=== PATIENT | female | born 1990 | race Caucasian/White ===

== ENCOUNTER 2017-03-08 00:27 | Emergency (ER) | payer OTHER ==
[~2017-03-08] VITALS: Ht 167.6 cm; Wt 84.6 kg
[~2017-03-08 00:27] MED LIST: ALBUAER2 INH; ANT25 PO; EPIN1INJ37 IM; FERR1TAB23 PO; PREN1TAB26 PO
[2017-03-08 00:32] VITALS: TEMP 36.5; Ht 167.6 cm; Wt 84.6 kg
[2017-03-08] MEDS ORDERED: DiphenhydrAMINE HCL 50 MG/ML VIAL IV STA (00:42)
[2017-03-08] MEDS ORDERED: KETOROLAC TROMETHAMINE 30 MG/ML VIAL IV STA (00:42)
[2017-03-08] MEDS ORDERED: METOCLOPRAMIDE HCL INJ 5 MG/ML 2 ML VIAL IV STA (00:42)
--- NOTE | 2017-03-08 00:43 | EMERGENCY ROOM VISIT NOTE ---
History Report prepared by Scribe: Chris Barreto Under the Supervision of: Dr. Soto Graf D.O. First contact with patient: 00:37 Chief Complaint: HEADACHE Stated Complaint: HEADACHE History of Present Illness The patient is a 26 year old female who presents to the Emergency Room with complaints of a persistent migraine headache for the past two weeks. The headache improves temporarily after sleeping but always returns to the same intensity afterwards. The patient has also experienced nausea and vomiting. The patient became lightheaded tonight and was dry heaving. The headache is rated 9/ 10 in severity. She denies any recent head trauma. She denies fevers. The patient has had Tylenol, Ibuprofen, and Excedrin without relief. She was given 6 mg Morphine and 1 L NSS en route to the ED in the ambulance. She does have a history of migraines. She states that she wants to speak with her PCP about being referred to a Neurologist. Source of History: patient Onset: two weeks ago Position: head Quality: other (migraine) Timing: other (persistent) Modifying Factors (Relieving): other (sleep) Associated Symptoms: + nausea, + vomiting, No fevers Review of Systems See HPI for pertinent positives and negatives. A total of ten systems were reviewed and were otherwise negative. Past Medical & Surgical Medical Problems: (1) Anxiety (2) Asthma (3) Bipolar Disorder, Unspecified (4) Depression (5) Glaucoma (6) PTSD (post-traumatic stress disorder) Surgical Problems: (1) History of artificial eye lens Family History Patient reports no known family medical history. Social History Smoking Status: Current Every Day Smoker Alcohol Use: none Marital Status: Housing Status: lives with family Occupation Status: unemployed Current/Historical Medications Scheduled Biotin (Biotin), 1 CAP PO DAILY Allergies Coded Allergies: BEE STING (Verified Allergy, Intermediate, hives, 03/08/17) Cephalexin (Verified Allergy, Intermediate, hives, 03/08/17) Mushroom (Verified Allergy, Intermediate, hives, 03/08/17) Penicillins (Verified Allergy, Intermediate, hives, 03/08/17) Wasp (Unverified Allergy, Unknown, hives tounge swelled , 03/08/17) Uncoded Allergies: SEAFOOD (Allergy, Intermediate, hives, 07/22/14) Physical Exam Vital Signs Date Time Temp Pulse Resp B/P Pulse Ox O2 Delivery O2 Flow Rate FiO2 03/08/17 01:05 64 18 132/74 66 120/80 85 132/78 03/08/17 00:53 96 Room Air 03/08/17 00:53 96 Room Air 03/08/17 00:32 36.5 81 18 124/89 97 Room Air Physical Exam GENERAL: Awake, alert, well-appearing, in no distress HENT: Normocephalic, atraumatic. Oropharynx unremarkable. EYES: Normal conjunctiva. Sclera non-icteric. No meningismus. NECK: Supple. No nuchal rigidity. FROM. No JVD. RESPIRATORY: Clear to auscultation. CARDIAC: Regular rate, normal rhythm. Extremities warm and well perfused. Pulses equal. ABDOMEN: Soft, non-distended. No tenderness to palpation. No rebound or guarding. No masses. RECTAL: Deferred. MUSCULOSKELETAL: Chest examination reveals no tenderness. The back is symmetrical on inspection without obvious abnormality. There is no CVA tenderness to palpation. No joint edema. LOWER EXTREMITIES: Calves are equal size bilaterally and non-tender. No edema. No discoloration. NEURO: Normal sensorium. No sensory or motor deficits noted. Nonfocal. SKIN: No rash or jaundice noted. Medical Decision & Procedures ER Provider Diagnostic Interpretation: CT: Radiology results as stated below per my review and radiologist interpretation CT HEAD: Comparison is made to CT Head dated 06/09/16. No ICH mass effect or edema. Preserved stallings white matter differentiation. No skull fracture. Clear paranasal sinuses and mastoid air cells. Radiologist: Cely Rodriguez MD. Laboratory Results 03/08/17 00:50 Red Blood Count 4.31, Mean Corpuscular Volume 88.6, Mean Corpuscular Hemoglobin 31.1, Mean Corpuscular Hemoglobin Concent 35.1, Mean Platelet Volume 9.7, Neutrophils (%) (Auto) 78.1, Lymphocytes (%) (Auto) 16.9, Monocytes (%) (Auto) 4.2, Eosinophils (%) (Auto) 0.4, Basophils (%) (Auto) 0.2, Neutrophils # (Auto) 6.32, Lymphocytes # (Auto) 1.37, Monocytes # (Auto) 0.34, Eosinophils # (Auto) 0.03, Basophils # (Auto) 0.02 03/08/17 00:50 Test 03/08/17 00:50 White Blood Count 8.10 K/uL (4.8-10.8) Red Blood Count 4.31 M/uL (4.2-5.4) Hemoglobin 13.4 g/dL (12.0-16.0) Hematocrit 38.2 % (37-47) Mean Corpuscular Volume 88.6 fL (80-100) Mean Corpuscular Hemoglobin 31.1 pg (25-34) Mean Corpuscular Hemoglobin Concent 35.1 g/dl (32-36) Platelet Count 201 K/uL (130-400) Mean Platelet Volume 9.7 fL (7.4-10.4) Neutrophils (%) (Auto) 78.1 % Lymphocytes (%) (Auto) 16.9 % Monocytes (%) (Auto) 4.2 % Eosinophils (%) (Auto) 0.4 % Basophils (%) (Auto) 0.2 % Neutrophils # (Auto) 6.32 K/uL (1.4-6.5) Lymphocytes # (Auto) 1.37 K/uL (1.2-3.4) Monocytes # (Auto) 0.34 K/uL (0.11-0.59) Eosinophils # (Auto) 0.03 K/uL (0-0.5) Basophils # (Auto) 0.02 K/uL (0-0.2) RDW Standard Deviation 38.8 fL (36.4-46.3) RDW Coefficient of Variation 12.0 % (11.5-14.5) Immature Granulocyte % (Auto) 0.2 % Immature Granulocyte # (Auto) 0.02 K/uL (0.00-0.02) Anion Gap 6.0 mmol/L (3-11) Est Creatinine Clear Calc Drug Dose 100.4 ml/min Estimated GFR () 98.3 Estimated GFR (Non- 84.8 BUN/Creatinine Ratio 16.3 (10-20) Calcium Level 8.6 mg/dl (8.5-10.1) Total Bilirubin 0.9 mg/dl (0.2-1) Direct Bilirubin 0.2 mg/dl (0-0.2) Aspartate Amino Transf (AST/SGOT) 22 U/L (15-37) Alanine Aminotransferase (ALT/SGPT) 36 U/L (12-78) Alkaline Phosphatase 54 U/L (45-117) Total Protein 6.7 gm/dl (6.4-8.2) Albumin 3.7 gm/dl (3.4-5.0) Laboratory results reviewed by me Medications Administered Medications (Trade) Dose Ordered Sig/Isabel Route Start Time Stop Time Status Last Admin Dose Admin Diphenhydramine HCl (Benadryl Inj) 50 mg NOW STAT IV 03/08/17 00:42 03/08/17 00:44 DC 03/08/17 00:51 50 MG Metoclopramide HCl (Reglan Inj) 10 mg NOW STAT IV 03/08/17 00:42 03/08/17 00:44 DC 03/08/17 00:51 10 MG Ketorolac Tromethamine (Toradol Inj) 30 mg NOW STAT IV 03/08/17 00:42 03/08/17 00:44 DC 03/08/17 00:52 30 MG ED Course 0038: The patient was evaluated in room B12b. A complete history and physical exam was performed. 0042: Toradol 30 mg IV, Reglan 10 mg IV, Benadryl 50 mg IV. 0132: The patient is doing well. Medical Decision Differential diagnosis includes migraine, tension headache, dehydration, brain tumor. Doubt meningitis, doubt subarachnoid hemorrhage. Repeat examination at 1:35 AM the patient is nonfocal neurologically and has greatly improved as far as her headache. I do not suspect subarachnoid or meningitis at this time. I have discussed evaluation with the patient patient' s significant other who is at bedside. Patient is to follow-up with her primary care physician this week and reportedly get an outpatient MRI as well. Impression Primary Impression: Headache Scribe Attestation The scribe's documentation has been prepared under my direction and personally reviewed by me in its entirety. I confirm that the note above accurately reflects all work, treatment, procedures, and medical decision making performed by me. Departure Information Dispostion Home / Self-Care Referrals Baljeet Diego D.O. (PCP) Forms HOME CARE DOCUMENTATION FORM, IMPORTANT VISIT INFORMATION Patient Instructions ED Headache Migraine, [facility] Problem Qualifiers Primary Impression: Headache Headache type: unspecified Headache chronicity pattern: acute headache Intractability: not intractable Qualified Codes: R51 - Headache
[2017-03-08 00:53] VITALS: O2SAT 96
[2017-03-08 01:03] LABS: BASO % 0.2 %; BASO ABS # 0.02 K/uL (0-0.2); COMPLETE YES; EOS % 0.4 %; HEMATOCRIT 38.2 % (37-47); IG% 0.2 %; LYMPH % 16.9 %; LYMPH ABS # 1.37 K/uL (1.2-3.4); MEAN CELL VOLUME 88.6 fL (80-100); MEAN CORPUSCULAR HEMOGLOBIN 31.1 pg (25-34); MEAN CORPUSCULAR HGB CONC 35.1 g/dl (32-36); MEAN PLATELET VOLUME 9.7 fL (7.4-10.4); MONO % 4.2 %; NEUT % 78.1 %; PLATELET COUNT 201 K/uL (130-400); RED BLOOD COUNT 4.31 M/uL (4.2-5.4)
[2017-03-08 01:21] LABS: BUN/CREATININE RATIO 16.3 (10-20); CALCIUM 8.6 mg/dl (8.5-10.1); CREATININE 0.93 mg/dl (0.60-1.20); POTASSIUM 3.7 mmol/L (3.5-5.1)
[2017-03-08] MEDS ORDERED: BIOT1CAP8 PO (01:24)
[2017-03-08 01:47] VITALS: BP 126/70; PULSE 74; O2SAT 98
--- NOTE | 2017-03-08 06:50 | DIAGNOSTIC IMAGING REPORT ---
HEAD CT NONCONTRAST CT DOSE: 537.48 mGy.cm HISTORY: Pain. Mental status change. headache TECHNIQUE: Multiaxial CT images of the head were performed without the use of intravenous contrast. Comparison: 06/09/2016 Findings: The paranasal sinuses and mastoid air cells are clear. The calvarium and skull base are intact. The ventricles and sulci are within normal limits. There is no mass, hematoma, midline shift, or acute infarct. Impression: No acute intracranial abnormality. Electronically signed by: Clem Grimaldo M.D. 03/08/2017 6:48 AM Dictated Date/Time: 03/08/2017 6:47 AM
== END 2017-03-08 01:50 | disposition home or self-care (01) ==
LOC: EDBD 00:27 → C.EDB 00:28
DX: R51 Headache (principal); J45.909 Unspecified asthma, uncomplicated; F41.9 Anxiety disorder, unspecified; F31.9 Bipolar disorder, unspecified; F17.200 Nicotine dependence, unspecified, uncomplicated; Z79.899 Other long term (current) drug therapy; Z88.0 Allergy status to penicillin; Z88.8 Allergy status to other drugs, medicaments and biological substances; Z91.030 Bee allergy status

== ENCOUNTER 2018-12-12 20:02 | Observation (INO) ==
[2018-12-12 21:48] LABS: Basophils # (auto) 0.02 K/uL (0-0.2); Basophils % (auto) 0.3 %; Eosinophils # (auto) 0.05 K/uL (0-0.5); Eosinophils % (auto) 0.6 %; Hematocrit (blood only) 35.1 % (37-47); Hemoglobin 12.3 g/dL (12.0-16.0); Immature Granulocytes # (auto) 0.04 K/uL (0.00-0.02); Immature Granulocytes % (auto) 0.5 %; Lymphocytes # (auto) 1.74 K/uL (1.2-3.4); Lymphocytes % (auto) 22.1 %; Mean Corpuscular Volume 90.7 fL (80-100); Mean Platelet Volume 10.4 fL (7.4-10.4); Monocytes # (auto) 0.82 K/uL (0.11-0.59); Monocytes % (auto) 10.4 %; Neutrophils # (auto) 5.21 K/uL (1.4-6.5); Neutrophils % (auto) 66.1 %; Platelet Count 174 K/uL (130-400); RDW Coefficient of Variation 13.6 % (11.5-14.5); RDW Standard Deviation 44.8 fL (36.4-46.3); Red Blood Count 3.87 M/uL (4.2-5.4); White Blood Count 7.88 K/uL (4.8-10.8)
[2018-12-12 23:37] LABS: Albumin Level 2.5 gm/dl (3.4-5.0); BUN Creatinine Ratio 9.1 (10-20); Calcium 8.5 mg/dl (8.5-10.1); Creatinine Clr Calc Pharmacy 148.9 ml/min; Est GFR (African American) 143.2; Est GFR (Non-African American) 123.6; Potassium 3.5 mmol/L (3.5-5.1)
[2018-12-12 23:39] LABS: Albumin Globulin Ratio 0.7 (0.9-2); Bilirubin,Total 0.7 mg/dl (0.2-1); Globulin 3.8 gm/dl (2.5-4.0); Total Protein 6.3 gm/dl (6.4-8.2)
[2018-12-13] MEDS ORDERED: HYDROmorphone INJ 2 MG/ML SYR/VIAL IM STA (01:39)
--- NOTE | 2018-12-13 01:43 | Labor Progress Brief Note ---
Date of Service December 13, 2018 27yo at 36+ weeks Here for ctx No cervical change after 3 hrs eval A/P Latent phase labor Dilaudid Physical Exam 2 Vital Signs (Past 24 Hours): Last Vital Signs Temp 36.6 C 12/12/18 23:25 Pulse 89 12/12/18 23:25 Resp 18 12/12/18 20:24 BP 120/73 12/12/18 23:25
[2018-12-13] MEDS ORDERED: HYDROmorphone INJ 1 MG/ML SYRINGE IM STA (01:47)
--- NOTE | 2018-12-13 07:25 | Obstetrical Progress Note ---
Date of Service December 13, 2018 Subjective contractions spaced out with Dilaudid and Benadryl FHT Cat 1 cervix 2/50/-3/vertex/closed/intact Not actively in labor will d/c home Physical Exam 2 Vital Signs (Past 24 Hours): Last Vital Signs Temp 36.6 C 12/12/18 23:25 Pulse 72 12/13/18 07:12 Resp 18 12/12/18 20:24 BP 124/73 12/13/18 02:38 Pulse Ox 98 12/13/18 07:12
== END 2018-12-13 08:40 | disposition home or self-care (01) ==
LOC: 4S1 20:02 → OPB 20:02 → 4S1 20:03

== ENCOUNTER 2019-10-11 11:42 | Inpatient (IN) ==
[2019-10-11] MEDS ORDERED: ONDANSETRON INJ 2 MG/ML 2 ML VIAL IV STA (11:56)
[2019-10-11] MEDS ORDERED: KETOROLAC TROMETHAMINE 15 MG/ML VIAL IV STA (11:56)
[2019-10-11] MEDS ORDERED: SODIUM CHLORIDE 0.9% 1000ML 1,000 ML IV ONE ×2 (11:56→13:06)
[2019-10-11] MEDS: HYDROmorphone INJ 0.5 MG/0.5 ML SYR IV PRN ×3 (12:17→16:15)
[2019-10-11 12:33] LABS: Basophils # (auto) 0.01 K/uL (0-0.2); Basophils % (auto) 0.1 %; Hematocrit (blood only) 37.9 % (37-47); Hemoglobin 13.8 g/dL (12.0-16.0); Immature Granulocytes # (auto) 0.03 K/uL (0.00-0.02); Immature Granulocytes % (auto) 0.3 %; Lymphocytes # (auto) 1.05 K/uL (1.2-3.4); Mean Corpuscular Hemoglobin 32.3 pg (25-34); Mean Corpuscular Hgb Conc 36.4 g/dL (32-36); Mean Corpuscular Volume 88.8 fL (80-100); Mean Platelet Volume 10.3 fL (7.4-10.4); Monocytes # (auto) 1.45 K/uL (0.11-0.59); Monocytes % (auto) 12.4 %; Neutrophils # (auto) 9.17 K/uL (1.4-6.5); Neutrophils % (auto) 78.2 %; Platelet Count 178 K/uL (130-400); RDW Coefficient of Variation 12.2 % (11.5-14.5); RDW Standard Deviation 39.1 fL (36.4-46.3); Red Blood Count 4.27 M/uL (4.2-5.4); White Blood Count 11.71 K/uL (4.8-10.8)
[2019-10-11 12:51] LABS: Albumin Level 3.3 gm/dl (3.4-5.0); BUN Creatinine Ratio 6.3 (10-20); Calcium 9.6 mg/dl (8.5-10.1); Creatinine Clr Calc Pharmacy 74.9 ml/min; Est GFR (African American) 89.9; Est GFR (Non-African American) 77.6; Potassium 3.1 mmol/L (3.5-5.1)
[2019-10-11 12:54] LABS: Albumin Globulin Ratio 0.7 (0.9-2); Bilirubin,Total 1.3 mg/dl (0.2-1); Globulin 4.5 gm/dl (2.5-4.0); Total Protein 7.8 gm/dl (6.4-8.2)
[2019-10-11 13:11] LABS: Pregnancy Test, Serum Negative (Negative)
--- NOTE | 2019-10-11 13:23 | Ultrasound Report ---
ABDOMINAL ULTRASOUND, RIGHT UPPER QUADRANT HISTORY: Right upper quadrant pain. Fever.. COMPARISON: Abdomen and pelvis CT 02/01/2015. FINDINGS: Pancreas: The pancreatic head and tail are obscured by overlying bowel gas. The remaining portions of the pancreas are within normal limits. Liver: Unremarkable. Gallbladder: Gallbladder fundus is partially obscured by overlying bowel gas. The remaining portions of the gallbladder are within normal limits. No gallbladder wall thickening. No gallstones. CBD: 4 mm. Right kidney: No hydronephrosis. IMPRESSION: No significant abnormality identified within the right upper quadrant. Electronically signed by: Duane Marcus M.D. 10/11/2019 1:22 PM
[2019-10-11] MEDS ORDERED: IOVERSOL 100ml IV PRN (14:11)
--- NOTE | 2019-10-11 14:30 | CT Scan Report ---
CT abd pelvis IV con only CT DOSE: 400.07 mGy.cm HISTORY: Nausea. Vomiting. Fever. vomiting, RUQ abd pain, fever TECHNIQUE: Multiaxial CT images of the abdomen and pelvis were performed following the use of intrave nous contrast. A dose lowering technique was utilized adhering to the principles of ALARA. COMPARISON STUDY: 02/01/2015 FINDINGS: The liver spleen pancreas are unremarkable. Lung bases are considered clear. Right kidney shows heterogeneous enhancement primarily at the lower and mid pole region. This is asso ciated with mild perinephric infiltrative change. There is a small low-density focus mid left kidney unchanged from the prior exam. No evidence for hydronephrosis. Nonobstructive bowel pattern. Normal appendix. 2 cm left ovarian cyst. Moderate amount of free fluid within the pelvic cul-de-sac most likely physio logic. Mild bladder wall thickening. Possibility of cystitis is considered. IMPRESSION: 1. Findings consistent with right renal pyelonephritis. 2. Mild right perinephric fat infiltrative change. 3. Mild bladder wall thickening which may indicate a component of cystitis. 4. Study is otherwise unremarkable. 5. note is made of a 2 cm left ovarian cyst with moderate amount of free fluid within the pelvic cul- de-sac. The above report was generated using voice recognition software. It may contain grammatical, syntax or spelling errors. Electronically signed by: Clem Grimaldo M.D. 10/11/2019 2:28 PM
[2019-10-11] MEDS ORDERED: CIPROFLOXACIN 400 MG/200 ML BAG IV STA (14:34)
[2019-10-11] MEDS ORDERED: POTASSIUM CHLORIDE / WTR 10 MEQ/100 ML PLCT IV ONE (14:51)
[2019-10-11 15:21] LABS: Appearance Urine Cloudy (Clear); Bacteria Urine Automated 4+ (Negative); Bilirubin Urine Negative (Negative); Blood Urine 2+ (Negative); Color Urine Dark Yellow; Glucose Urine UA Negative (Negative); Ketones Urine Trace (Negative); Leukocyte Esterase Urine 2+ (Negative); Nitrite Urine Positive (Negative); Protein Urine 2+ (Negative); Specific Gravity Urine > 1.045 (1.000-1.030); Urobilinogen Urine Negative (Negative); WBC Urine Automated >30 /hpf (0-5)
[2019-10-11] MEDS ORDERED: ACETAMINOPHEN 500 MG TAB PO PRN (15:30)
--- NOTE | 2019-10-11 15:40 | Emergency Department Note ---
Entered by Aristides Spivey acting as a scribe for ED Provider Note CHIEF COMPLAINT: Abdominal pain HISTORY OF PRESENT ILLNESS: The patient is a 28 year old female who presents to the Emergency Room with complaints of constant right upper quadrant abdominal pain that started 3 days ago. The patient rates the pain as an 8/10 and notes nothing makes it better. Following the abdominal pain the patient developed a fever and has been unable to keep any medications down due to nausea and vomiting. The patient also endorses some neck stiffness and headache that started after the abdominal pain as well. The patient mentioned that she had a 10 months ago. The patie nt does still have her gallbladder and has a family history of gallbladder disease. Pt denies LOC, chills, diaphoresis, visual changes, chest pain, breathing difficulties, back pain, melena, hematochezia, urinary symptoms, numbness, weakness, lymphadenopathy, rash, or other complaints. REVIEW OF SYSTEMS: See HPI for pertinent positives and negatives. A total of ten systems were reviewed and were otherwise negative. PMHx/PSHx: , CHI, Asthma, Glaucoma, PTSD, Depression, Anxiety, Vertigo SOCIAL HISTORY: Patient lives at home. PHYSICAL EXAM: GENERAL: Awake, alert, very uncomfortable-appearing, in moderate distress HENT: Normocephalic, atraumatic. Oropharynx unremarkable. EYES: Normal conjunctiva. Sclera non-icteric. NECK: Inspection normal. Non-tender. Supple. No nuchal rigidity. FROM. No masses. RESPIRATORY: Clear to auscultation. No wheezes. No rales. Normal respiratory effort. CARDIAC: Tachycardic rate. Normal rhythm. No murmurs. No rubs. Extremities warm and well perfused. Pulses equal. No JVD. GI: Soft, non-distended. Right upper quadrant tenderness to palpation with guarding. No guarding. No masses. RECTAL: Deferred. MUSCULOSKELETAL: Atraumatic. Chest examination reveals no tenderness. The back is symmetrical on inspection without obvious abnormality. There is no CVA tenderness to palpation. No joint edema. LOWER EXTREMITIES: Calves are equal size bilaterally and non-tender. No edema. No discoloration. NEURO: Normal sensorium. No sensory or motor deficits noted. SKIN: No rash or jaundice noted. EMERGENCY DEPARTMENT COURSE: 1151: Past medical records reviewed. The patient was evaluated in room A09B, and a complete history and physical examination were performed. 1233: I reassessed the patient and she is feeling a little better. She is about to go to ultrasound. 1436: I reevaluated the patient and she is feeling somewhat better but still in pain. We discussed the results as well as the treatment plan, which she was agreeable with. 1450: I discussed the patient's case with Vernell LEAHY who is working under Dr. Giuliano Cooney Hospitalist. They agreed to accept the patient for further evaluation. MEDICAL DECISION MAKING: A9 Triage Nursing notes reviewed and agree them. The patient's history was concerning for flank and abdominal pain. Differential diagnosis: Etiologies such as biliary pathology, UTI, renal colic, appendicitis, diverticulitis, mesenteric ischemia, aortic pathology, infections, inflammatory bowel disease, PUD, as well as others were entertained. Physical examination findings: As above. Significant right upper quadrant tenderness. ER treatment provided: Normal saline hydration 2 L bolus IV Zofran IV Toradol IV Dilaudid x2 On reassessment the patient felt somewhat better. IV Cipro Diagnostic interpretation by me: The labs revealed a leukocytosis on CBC. Chemistry panel revealed mild hypokalemia. Urinalysis revealed findings consistent with urinary tract infection. Culture pending. Imaging studies: Gallbladder ultrasound reveals no acute findings. CT imaging of the abdomen pelvis with IV contrast reveals significant pyelonephritis on the right side. No other acute pathology noted. The patient's blood pressure is marginal. She still has significant pain. She has some nausea. She needs IV antibiotics for the pyelonephritis. Consultation: A consultation was placed with the hospitalist. The case was discussed and diagnostics were reviewed. The patient was evaluated in the ER for further treatment. IMPRESSION: Pyelonephritis Right upper quadrant abdominal pain Fever Hypokalemia Dehydration PLAN: Being evaluated by hospitalist The scribe's documentation has been prepared under my direction and personally reviewed by me in its entirety. I confirm that the note above accurately reflects all work, treatment, procedures, and medical decision making performed by me. Impression & Plan Pyelonephritis, Right upper quadrant abdominal pain, Fever, Hypokalemia, Acute dehydration Past Med/Surg History Medical History History of seizures Patient has a history of petit mal seizures, follows Neuro in [place]. Currently on no medications. Per patient's significant other, patient's last seizure activity was in 2018. Severe pre-eclampsia affecting first 2008-Induced at 34 weeks with twin due to preeclampsia Twin 2008 Family History Grandmother (Maternal) Diabetes Cervical cancer Grandfather (Paternal) Stroke Mother Cancer Ovarian and breast cancer Aunt Uterine cancer Breast cancer Social History Preferred Language: Thai Communication Ability: Effective Beliefs That Will Affect Care: None marital status: Single Current Living Situation: Family Feels Safe at Home: Yes Smoking Status: Former smoker Second Hand Exposure: No ; Hx Alcohol Use: No Hx Substance Use: No Results & Data Vital Signs Vital Signs - 24 hr 10/11/19 11:45 10/11/19 12:19 10/11/19 12:20 Temperature 38.5 C H Temperature Source Oral Pulse Rate 117 H Pulse Rate [Apical] 108 H Pulse Rate from SpO2 Sensor Respiratory Rate 22 24 Blood Pressure 144/77 H Blood Pressure [Left Arm] 112/69 Blood Pressure Mean 99 Blood Pressure Mean [Left Arm] 83 Blood Pressure Position Sitting Pulse Oximetry 100 98 98 Oxygen Delivery Method Room Air Room Air Sepsis Recent Fever Within 48 Hours Yes Sepsis New/Unexplained Change in Mental Status No Sepsis Action Taken by Nursing No Action Required 10/11/19 12:30 10/11/19 13:55 10/11/19 14:00 Temperature Temperature Source Pulse Rate 106 H 99 H 96 H Pulse Rate [Apical] 98 H Pulse Rate from SpO2 Sensor 106 H 99 H 98 H Respiratory Rate 27 H 31 H 21 Blood Pressure 96/61 L 92/42 L 97/48 L Blood Pressure [Left Arm] 92/42 L Blood Pressure Mean 77 62 64 Blood Pressure Mean [Left Arm] 58 Blood Pressure Position Pulse Oximetry 96 98 96 Oxygen Delivery Method Room Air Room Air Sepsis Recent Fever Within 48 Hours Sepsis New/Unexplained Change in Mental Status Sepsis Action Taken by Nursing 10/11/19 15:09 Temperature Temperature Source Pulse Rate Pulse Rate [Apical] 105 H Pulse Rate from SpO2 Sensor Respiratory Rate 20 Blood Pressure Blood Pressure [Left Arm] 100/57 L Blood Pressure Mean Blood Pressure Mean [Left Arm] 71 Blood Pressure Position Pulse Oximetry 100 Oxygen Delivery Method Room Air Sepsis Recent Fever Within 48 Hours Sepsis New/Unexplained Change in Mental Status Sepsis Action Taken by [facility] Medications Current Medication List: was personally reviewed by me Laboratory Data Attestation: I reviewed the patient's lab results. Result diagrams: 10/11/19 12:17 10/11/19 12:17 Lab Results 10/11/19 10/11/19 10/11/19 Range/Units 12:17 12:17 12:17 WBC 11.71 H (4.8-10.8) K/uL RBC 4.27 (4.2-5.4) M/uL Hgb 13.8 (12.0-16.0) g/dL Hct 37.9 (37-47) % MCV 88.8 (80-100) fL MCH 32.3 (25-34) pg MCHC 36.4 H (32-36) g/dL RDW Std Deviation 39.1 (36.4-46.3) fL RDW Coeff of Jeremiah 12.2 (11.5-14.5) % Plt Count 178 (130-400) K/uL MPV 10.3 (7.4-10.4) fL Immature Gran % (Auto) 0.3 % Neut % (Auto) 78.2 % Lymph % (Auto) 9.0 % Cottle % (Auto) 12.4 % Eos % (Auto) 0.0 % Baso % (Auto) 0.1 % Immature Gran # (Auto) 0.03 H (0.00-0.02) K/uL Neut # (Auto) 9.17 H (1.4-6.5) K/uL Lymph # (Auto) 1.05 L (1.2-3.4) K/uL Cottle # (Auto) 1.45 H (0.11-0.59) K/uL Eos # (Auto) 0.00 (0-0.5) K/uL Baso # (Auto) 0.01 (0-0.2) K/uL Sodium 134 L (136-145) mmol/L Potassium 3.1 L (3.5-5.1) mmol/L Chloride 104 (98-107) mmol/L Carbon Dioxide 23 (21-32) mmol/L Anion Gap 8.0 (3-11) BUN 6 L (7-18) mg/dl Creatinine 0.99 (0.6-1.2) mg/dl Est Cr Clr Drug Dosing 74.9 ml/min Est GFR ( Amer) 89.9 Est GFR (Non-Af Amer) 77.6 BUN/Creatinine Ratio 6.3 L (10-20) Glucose 110 H (70-99) mg/dl Calcium 9.6 (8.5-10.1) mg/dl Total Bilirubin 1.3 H (0.2-1) mg/dl AST 23 (15-37) U/L ALT 45 (12-78) U/L Alkaline Phosphatase 104 (45-117) U/L Total Protein 7.8 (6.4-8.2) gm/dl Albumin 3.3 L (3.4-5.0) gm/dl Globulin 4.5 H (2.5-4.0) gm/dl Albumin/Globulin Ratio 0.7 L (0.9-2) Lipase 112 (73-393) U/L HCG, Qual Negative (Negative) Urine Color Urine Appearance (Clear) Urine pH (4.5-7.5) Ur Specific [place] (1.000-1.030) Urine Protein (Negative) Urine Glucose (UA) (Negative) Urine Ketones (Negative) Urine Blood (Negative) Urine Nitrite (Negative) Urine Bilirubin (Negative) Urine Urobilinogen (Negative) Ur Leukocyte Esterase (Negative) 10/11/19 Range/Units 15:04 WBC (4.8-10.8) K/uL RBC (4.2-5.4) M/uL Hgb (12.0-16.0) g/dL Hct (37-47) % MCV (80-100) fL MCH (25-34) pg MCHC (32-36) g/dL RDW Std Deviation (36.4-46.3) fL RDW Coeff of Jeremiah (11.5-14.5) % Plt Count (130-400) K/uL MPV (7.4-10.4) fL Immature Gran % (Auto) % Neut % (Auto) % Lymph % (Auto) % Cottle % (Auto) % Eos % (Auto) % Baso % (Auto) % Immature Gran # (Auto) (0.00-0.02) K/uL Neut # (Auto) (1.4-6.5) K/uL Lymph # (Auto) (1.2-3.4) K/uL Cottle # (Auto) (0.11-0.59) K/uL Eos # (Auto) (0-0.5) K/uL Baso # (Auto) (0-0.2) K/uL Sodium (136-145) mmol/L Potassium (3.5-5.1) mmol/L Chloride (98-107) mmol/L Carbon Dioxide (21-32) mmol/L Anion Gap (3-11) BUN (7-18) mg/dl Creatinine (0.6-1.2) mg/dl Est Cr Clr Drug Dosing ml/min Est GFR ( Amer) Est GFR (Non-Af Amer) BUN/Creatinine Ratio (10-20) Glucose (70-99) mg/dl Calcium (8.5-10.1) mg/dl Total Bilirubin (0.2-1) mg/dl AST (15-37) U/L ALT (12-78) U/L Alkaline Phosphatase (45-117) U/L Total Protein (6.4-8.2) gm/dl Albumin (3.4-5.0) gm/dl Globulin (2.5-4.0) gm/dl Albumin/Globulin Ratio (0.9-2) Lipase (73-393) U/L HCG, Qual (Negative) Urine Color Dark Yellow Urine Appearance Cloudy A (Clear) Urine pH 6.0 (4.5-7.5) Ur Specific [place] > 1.045 H (1.000-1.030) Urine Protein 2+ H (Negative) Urine Glucose (UA) Negative (Negative) Urine Ketones Trace H (Negative) Urine Blood 2+ H (Negative) Urine Nitrite Positive A (Negative) Urine Bilirubin Negative (Negative) Urine Urobilinogen Negative (Negative) Ur Leukocyte Esterase 2+ H (Negative) Administered Medications Hydromorphone HCl (Dilaudid) 0.5 mg IV Q15M PRN PRN Reason: Pain Stop: 10/25/19 11:55 Last Admin: 10/11/19 13:51 Dose: 0.5 mg Documented by: [id number] Admin: 10/11/19 12:17 Dose: 0.5 mg Documented by: [id number] Potassium Chloride (K Sandro / Wtr) 10 meq in 100 mls @ 100 mls/hr IV ONE ONE Stop: 10/11/19 15:50 Last Admin: 10/11/19 15:04 Dose: 100 mls/hr Documented by: [id number] Ioversol (Optiray 320 100ml) 94 ml IV ONCE PRN PRN Reason: Interaction Checking Stop: 10/15/19 14:10 Last Admin: 10/11/19 14:12 Dose: 94 ml Documented by: [id number] Discontinued Medications Sodium Chloride (Nss 1000ml) 1,000 mls @ 999 mls/hr IV .Q1H1M ONE Stop: 10/11/19 12:56 Last Infusion: 10/11/19 13:15 Dose: 0 mls/hr Documented by: [id number] Admin: 10/11/19 12:14 Dose: 999 mls/hr Documented by: [id number] Sodium Chloride (Nss 1000ml) 1,000 mls @ 999 mls/hr IV .Q1H1M ONE Stop: 10/11/19 14:06 Last Admin: 10/11/19 13:51 Dose: 999 mls/hr Documented by: [id number] Ciprofloxacin (Cipro) 400 mg in 200 mls @ 200 mls/hr IV NOW STA Stop: 10/11/19 15:33 Last Admin: 10/11/19 15:04 Dose: 200 mls/hr Documented by: [id number] Ketorolac Tromethamine (Toradol) 10 mg IV NOW STA Stop: 10/11/19 11:57 Last Admin: 10/11/19 12:15 Dose: 10 mg Documented by: [id number] Ondansetron HCl (Zofran) 4 mg IV NOW STA Stop: 10/11/19 11:57 Last Admin: 10/11/19 12:15 Dose: 4 mg Documented by: [id number] Imaging Data Radiologist's Impression: Radiology results as stated below per my review and the radiologist's interpretation: CT abd pelvis IV con only CT DOSE: 400.07 mGy.cm HISTORY: Nausea. Vomiting. Fever. vomiting, RUQ abd pain, fever TECHNIQUE: Multiaxial CT images of the abdomen and pelvis were performed following the use of intravenous contrast. A dose lowering technique was utilized adhering to the principles of ALARA. COMPARISON STUDY: 02/01/2015 FINDINGS: The liver spleen pancreas are unremarkable. Lung bases are considered clear. Right kidney shows heterogeneous enhancement primarily at the lower and mid pole region. This is associated with mild perinephric infiltrative change. There is a small low-density focus mid left kidney unchanged from the prior exam. No evidence for hydronephrosis. Nonobstructive bowel pattern. Normal appendix. 2 cm left ovarian cyst. Moderate amount of free fluid within the pelvic cul-de-sac most likely physiologic. Mild bladder wall thickening. Possibility of cystitis is considered. IMPRESSION: 1. Findings consistent with right renal pyelonephritis. 2. Mild right perinephric fat infiltrative change. 3. Mild bladder wall thickening which may indicate a component of cystitis. 4. Study is otherwise unremarkable. 5. note is made of a 2 cm left ovarian cyst with moderate amount of free fluid within the pelvic cul-de-sac. The above report was generated using voice recognition software. It may contain grammatical, syntax or spelling errors. Electronically signed by: Clem Grimaldo M.D. 10/11/2019 2:28 PM ABDOMINAL ULTRASOUND, RIGHT UPPER QUADRANT HISTORY: Right upper quadrant pain. Fever.. COMPARISON: Abdomen and pelvis CT 02/01/2015. FINDINGS: Pancreas: The pancreatic head and tail are obscured by overlying bowel gas. The remaining portions of the pancreas are within normal limits. Liver: Unremarkable. Gallbladder: Gallbladder fundus is partially obscured by overlying bowel gas. The remaining portions of the gallbladder are within normal limits. No gallbladder wall thickening. No gallstones. CBD: 4 mm. Right kidney: No hydronephrosis. IMPRESSION: No significant abnormality identified within the right upper quadrant. Electronically signed by: Duane Marcus M.D. 10/11/2019 1:22 PM Blood Pressure Blood Pressure Findings: Low blood pressure Blood Pressure Disposition: further management by hospitalist Discharge Plan Visit Data Chief Complaint: Abdominal Pain Stated Complaint: SEVERE RT UPPER QUAD PAIN WITH FEVER ED Provider: Codey Hammonds Discharge Problem: Pyelonephritis, Right upper quadrant abdominal pain, Fever, Hypokalemia, Acute dehydration Patient Disposition: Being Evaluated by Hospitalist Forms Stand Alone Forms: My [employer] Prescriptions Prescriptions: No Action dextroamphetamine-amphetamine 10 mg tablet 10 mg PO DAILY RF: 0 dextroamphetamine-amphetamine 20 mg capsule,extended release 24hr 40 mg PO DIRECTED RF: 0 lorazepam 1 mg tablet 1 mg PO TID PRN (Reason: Anxiety) RF: 0 duloxetine 30 mg capsule,delayed release(DR/EC) 30 mg PO DIRECTED RF: 0 Referrals Referrals: Concetta Pruett MD [Primary Care Provider] - Discharge Problem: Fever Qualifiers: Fever type: unspecified Qualified Code(s): R50.9 - Fever, unspecified The scribe's documentation has been prepared under my direction and personally r eviewed by me in its entirety. I confirm that the note above accurately reflects all work, treatment, procedures, and medical decision making performed by me.
--- NOTE | 2019-10-11 15:47 | History & Physical Report ---
Date of Service October 11, 2019 Assessment & Plan (1) Sepsis: (2) Pyelonephritis: This is a 28-year-old female with history of depression, anxiety, ADD, migraine headaches and history of petit mall seizures who presents with worsening right upper quadrant pain x3 days and was found to have sepsis 2/2 acute right pyelonephritis. -Febrile at 38.5, tachycardic at 110, leukocytosis of 11.7k. Meets sepsis criteria per CMS guidelines -UA grossly abnormal. CT abd/pelvis with findings consistent with right renal pyelonephritis -Considered gall bladder pathology in setting of RUQ pain but GB ultrasound without significant abnormality identified within the right upper quadrant -Received dose of IV Cipro in ED. Will broaden coverage to IV Ertapenem (endorsing allergic rxn- anaphylaxis with PCN and keflex) -Urine, blood cultures pending. Lactate pending -Continue IV fluids, pain control (3) Hypokalemia: K of 3.1 in setting of poor PO intake, GI losses -Given 10 mEq in ED. Ordered 2 additional 10 Janice K Riders, as well as 20 mEq in NSS -Repeat lab work in AM (4) History of petit-mal seizures: History of reported petit mal seizures but not recorderd on EEG -Has never been on seizure medications. In transitioning to [facility] neuro group (5) Depression: Continue Cymbalta (6) ADD (attention deficit disorder): Continue Adderall (7) Anxiety: Continue Ativan PRN DVT Ppx: Early ambulation, albertina hose Code status: FULL PCP: Rakesh Dispo: Observation med tele. Plan to return home once medically stable. Patient seen in collaboration with Dr. Nobles. Please see addendum. History of Present Illness Chief Complaint: Abdominal pain Primary Care Provider: Concetta Acuna MD This is a 28-year-old female with history of depression, anxiety, ADD, migraine headaches and history of petit mall seizures who presents with worsening right upper quadrant pain x3 days. Patient states that pain is sharp and constant with intermittent pain wrapping around to her right back. Associated with fever with a T-max of 102, chills, lightheadedness, nausea and decreased appetite. Also endorses 4 episodes of vomiting today after eating. Denies any dysuria, hematuria or pyuria. Normal urinary urgency and frequency. Denies visual changes, chest pain, palpitations, shortness of breath, hematemesis, diarrhea or constipation. Patient recently stopped smoking cigarettes but endorses smoking marijuana 4-5 times per week to help manage anxiety and migraines. Allergies Allergy/AdvReac Type Severity Reaction Status Date / Time bee venom protein (honey bee) Allergy Severe Anaphylaxis Verified 10/11/19 12:36 hornet venom Allergy Severe Anaphylaxis Verified 10/11/19 12:36 shellfish derived Allergy Severe Anaphylaxis Verified 10/11/19 12:36 cephalexin Allergy Intermediate hives Verified 10/11/19 12:36 mushroom Allergy Intermediate hives Verified 10/11/19 12:36 Penicillins Allergy Intermediate hives Verified 10/11/19 12:36 sumatriptan [From Imitrex] Allergy Intermediate Hives Verified 10/11/19 12:36 Home Medications Home Medications Medication Instructions Recorded Confirmed Type dextroamphetamine-amphetamine 10 mg PO DAILY@1230 10/11/19 10/11/19 History dextroamphetamine-amphetamine 40 mg PO DIRECTED 10/11/19 10/11/19 History duloxetine 30 mg PO HS 10/11/19 10/11/19 History duloxetine 60 mg PO DAILY 10/11/19 10/11/19 History lorazepam 1 mg PO TID 10/11/19 10/11/19 History Past Med/Surg History Medical History (Updated 10/11/19 @ 16:40 by Vernell Ramirez PA-C) ADD (attention deficit disorder) History of petit-mal seizures (Chronic) History of seizures Patient has a history of petit mal seizures, follows Neuro in [place]. Currently on no medications. Per patient's significant other, patient's last seizure activity was in 2018. 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 Physical Exam Physical Exam: General Appearance: WD/WN, vitals as above, NAD, lying in bed, conversing easily, appears acutely ill Head: normocephalic, atraumatic Eyes: normal inspection, PERRL, conjunctivae normal, anicteric sclerae ENT: external ear and nose normal, oropharynx normal Neck: trachea midline, no thyromegaly normal visual inspection Respiratory: normal respiratory effort, lungs clear to auscultation, no wheeze, rales, rhonchi. Normal insp/exp effort, no accessory muscle use Cardiovascular: tachycardic rate, rhythm, no murmur appreciated, normal peripheral pulses. Vessels: no JVD or carotid bruit Chest: normal inspection of chest Abdomen/GI: normal bowel sounds, soft, TTP of RUQ and RLQ, no guarding, no hepatosplenomegaly : + R CVA tenderness Extremities/Musculoskelatal: no cyanosis or clubbing, extremities motor strength 5/5 Neurologic: PERRL, EOMI, accommodation nl, no face palsy, no dysarthria CN's II-XI intact bilaterally and moves all extremities Psychiatric: A+Ox3, euthymic affect Skin: no rashes, normal color, warm/dry Results & Data Vital Signs (Past 12 Hours) Vital Signs Temp Pulse Pulse Resp BP BP Pulse Ox 10/11/19 15:09 105 H 20 100/57 L 100 10/11/19 14:00 96 H 21 97/48 L 96 10/11/19 13:55 99 H 98 H 31 H 92/42 L 92/42 L 98 10/11/19 12:30 106 H 27 H 96/61 L 96 10/11/19 12:20 108 H 24 112/69 98 10/11/19 12:19 98 10/11/19 11:45 38.5 C H 117 H 22 144/77 H 100 Laboratory Results Short CBC 10/11/19 Range/Units 12:17 WBC 11.71 H (4.8-10.8) K/uL Hgb 13.8 (12.0-16.0) g/dL Hct 37.9 (37-47) % Plt Count 178 (130-400) K/uL BMP 10/11/19 12:17 Sodium 134 L Potassium 3.1 L Chloride 104 Carbon Dioxide 23 BUN 6 L Creatinine 0.99 Glucose 110 H Calcium 9.6 Liver Function 10/11/19 Range/Units 12:17 Total Bilirubin 1.3 H (0.2-1) mg/dl AST 23 (15-37) U/L ALT 45 (12-78) U/L Alkaline Phosphatase 104 (45-117) U/L Albumin 3.3 L (3.4-5.0) gm/dl Urine 10/11/19 Range/Units 15:04 Urine Color Dark Yellow Urine Appearance Cloudy A (Clear) Urine pH 6.0 (4.5-7.5) Ur Specific [place] > 1.045 H (1.000-1.030) Urine Protein 2+ H (Negative) Urine Glucose (UA) Negative (Negative) Diagnostic Findings Gallbladder ultrasound: IMPRESSION: No significant abnormality identified within the right upper quadrant. CT abd/pelvis: IMPRESSION: 1. Findings consistent with right renal pyelonephritis. 2. Mild right perinephric fat infiltrative change. 3. Mild bladder wall thickening which may indicate a component of cystitis. 4. Study is otherwise unremarkable. 5. note is made of a 2 cm left ovarian cyst with moderate amount of free fluid within the pelvic cul-de-sac. Supervising Physician Co-Signing Physician Notes I have seen and examined the patient and have discussed the case with the provider above. I agree with the assessment and plan as stated with the following exceptions. 28 yo F with sepsis 2/2 acute pyelonephritis. She denies any UTI symptoms, and developed acute right flank pain with fever that worsened. she denies recurrent UTIs in the past, denies any recent instrumentation, denies thong underwear use. She has been sexually active recently. No other vaginal symptoms. She does report some URI symptoms in the past two weeks that are persistent. She also has a h/o migraines and tension headaches and report this with some subjective neck stiffness. She states this is a typical headache for her with her migraine cycle and her neck exam is very normal. She reports guarding with the pain all through the day and feels this has caused her neck and head pain. Although meningitis considered, do not suspect it based on these reasons. Ill-appearing and guarded on physical exam, normal heart and lungs, exquisitely zaki abdomen to palpation in RUQ and R CVA areas. Some pain radiating to her back with palpation of epigastric area. Skin warm and dry. Continue treatment with IVF, ertapenem and supportive care efforts including antiemetics and pain control as needed. K pad for neck discomfort. Blood and urine cultures pending. DO Giuliano
[2019-10-11] MEDS ORDERED: ERTAPENEM CONSULT ACTIVE PRN (17:33)
[2019-10-11] MEDS: POTASSIUM CHLORIDE / WTR 10 MEQ/100 ML PLCT IV SCH (17:50)
[2019-10-11] MEDS: ONDANSETRON INJ 2 MG/ML 2 ML VIAL IV PRN (17:56)
[2019-10-11] MEDS: KETOROLAC TROMETHAMINE 15 MG/ML VIAL IV PRN (17:56)
[2019-10-11] MEDS ORDERED: NSS + 20MEQ KCL 20 MEQ/1,000 ML BAG IV SCH (18:00)
[2019-10-11] MEDS: ERTAPENEM SODIUM 1,000 MG in SODIUM CHLORIDE 0.9% 50 ML IV SCH (18:08)
[2019-10-11] MEDS ORDERED: POTASSIUM CHLORIDE 20 MEQ TABCR PO ONE (19:45)
[2019-10-11] MEDS ORDERED: ACETAMINOPHEN 1,000 MG/100 ML VIAL IV PRN (20:09)
[2019-10-11] MEDS ORDERED: HYDROmorphone INJ 0.5 MG/0.5 ML SYR IV PRN (20:09)
[2019-10-11] MEDS: LORazepam 1 MG TAB PO SCH (22:56)
[2019-10-11] MEDS: DULOXETINE HCL 30 MG CAP PO SCH (22:56)
[2019-10-12] MEDS: ONDANSETRON INJ 2 MG/ML 2 ML VIAL IV PRN (00:09)
[2019-10-12] MEDS: KETOROLAC TROMETHAMINE 15 MG/ML VIAL IV PRN ×3 (00:09→15:24)
[2019-10-12] MEDS: SODIUM CHLORIDE 0.9% 1000ML 1,000 ML IV SCH ×2 (01:47→08:27)
[2019-10-12 07:03] LABS: Hematocrit (blood only) 33.9 % (37-47); Hemoglobin 11.7 g/dL (12.0-16.0); Mean Corpuscular Hemoglobin 31.8 pg (25-34); Mean Corpuscular Hgb Conc 34.5 g/dL (32-36); Mean Corpuscular Volume 92.1 fL (80-100); Platelet Count 136 K/uL (130-400); RDW Coefficient of Variation 12.5 % (11.5-14.5); RDW Standard Deviation 42.3 fL (36.4-46.3); Red Blood Count 3.68 M/uL (4.2-5.4); White Blood Count 9.54 K/uL (4.8-10.8)
[2019-10-12 07:45] LABS: BUN Creatinine Ratio 10.6 (10-20); Calcium 8.4 mg/dl (8.5-10.1); Creatinine Clr Calc Pharmacy 91.5 ml/min; Est GFR (African American) 112.9; Est GFR (Non-African American) 97.4; Magnesium 1.9 mg/dl (1.8-2.4); Potassium 4.1 mmol/L (3.5-5.1)
[2019-10-12] MEDS: LORazepam 1 MG TAB PO SCH ×3 (08:28→20:03)
[2019-10-12] MEDS: AMPHETAMINE ASP/SULF/DEXTRAMPH ER 20 MG CAP PO SCH (08:28)
[2019-10-12] MEDS: ENOXAPARIN INJ 40 MG/0.4 ML SYR SQ SCH (08:29)
[2019-10-12] MEDS: DULOXETINE HCL 60 MG CAP PO SCH (08:30)
--- NOTE | 2019-10-12 10:43 | Hospitalist Progress Note ---
Date of Service October 12, 2019 Assessment & Plan (1) Sepsis: (2) Pyelonephritis: per Dr. Alvarado notes: This is a 28-year-old female with history of depression, anxiety, ADD, migraine headaches and history of petit mall seizures who presents with worsening right upper quadrant pain x3 days and was found to have sepsis 2/2 acute right pyelonephritis. -Febrile at 38.5, tachycardic at 110, leukocytosis of 11.7k. Meets sepsis criteria per CMS guidelines -UA grossly abnormal. CT abd/pelvis with findings consistent with right renal pyelonephritis - Urine culture: E coli, gram negative bacilli Blood cultures: pending - fever and WBC improving continue Ertapenem ff up cultures hold off on IV fluids given wheezing (3) Asthma exacerbation: CXR:Cardiomediastinal and hilar silhouettes are within normal limits. No pneumothorax, pleural effusion, focal airspace consolidation or overt pulmonary edema. Bones of the chest appear grossly intact. ABG : pending -- started Nebs q4h, Advair, Solumedrol q8h -- reassessed at around 4pm, patient comfortable, breathing much better wheezing resolved on ausculatation (4) Hypokalemia: K of 3.1 in setting of poor PO intake, GI losses - resolved (5) History of petit-mal seizures: per admitting service notes: History of reported petit mal seizures but not recorderd on EEG -Has never been on seizure medications. In transitioning to [facility] (6) Depression: Continue Cymbalta (7) ADD (attention deficit disorder): Continue Adderall (8) Anxiety: Continue Ativan PRN DVT Ppx: Early ambulation, albertina hose , LOVENOX Code status: FULL PCP: Rakesh Dispo: Observation med tele. Plan to return home once medically stable. Subjective ff up for pyelonephritis seen resting in bed, comfortable CRISPIN Vasquez at bedside throughout whole encounter states she is feeling better today, less RUQ/flank pain no nausea/vomiting, no problems voiding no other symptoms in the afternoon, messaged by RN as patient was hypoxic evaluated patient at bedside, on 2 L NC, 98% o2 sats feels SOB, better with O2 supplement (+) mild accessory muscle use, mild diffuse wheezing ordered stat CXR, ABG stat Lasix, Nebs, Solumedrol patient clinically improved, no accessory muscle use after initial assessment will reassess again in 1-2 hours Review of Systems Review of Systems: All systems reviewed & are unremarkable except as noted in HPI & below Physical Exam Physical Exam: General- oriented x 3, not in distress, speaks in sentences with no effort or accessory muscle use Head- atraumatic Eyes- PERRL, EOMI, anicteric ENT- oropharynx clear Neck- supple, no JVD, no adenopathy, no thyromegaly; carotids +2/2, no bruits appreciated Lungs- clear to auscultation bilaterally, no rales/wheezes (in the afternoon, (+) scattered mild wheeze bilaterally) Heart- normal rate, regular rhythm; no murmur, no gallop, no rub appreciated Abdomen- normal bowel sounds, nondistended, soft,mild RUQ/right CVA tenderness, no masses or hepatosplenomegaly Extremities- no pretibial edema, no calf tenderness; peripheral pulses intact Neuro- alert, oriented x 3; CN 2-12 grossly intact; motor 5/5 bilaterally;sensation 100% on all extremities; no other gross focal neurologic deficits Skin- warm & dry Results & Data Vital Signs (Past 12 Hours) Vital Signs Temp Pulse Pulse Resp BP Pulse Ox 10/12/19 10:26 89 10/12/19 07:46 37.2 C 98 H 18 112/75 94 10/12/19 05:16 89 10/12/19 04:09 36.8 C 76 17 100/64 99
[2019-10-12] MEDS ORDERED: FUROSEMIDE 40 MG/4 ML VIAL IV ONE (14:06)
[2019-10-12] MEDS ORDERED: LEVALBUTEROL 1.25MG/0.5ML NEB NEB STA (14:09)
[2019-10-12] MEDS: AMPHETAMINE ASP/SULF/DEXTRAMPH 10 MG TAB PO SCH (14:18)
[2019-10-12 14:41] LABS: Base Excess ABG -1.1 mEq/L (-9-1.8); HCO3 ABG 21 mmol/L (19-24); Oxygen Saturation ABG 99.3 % (90-95); PCO2 ABG 29 mmHg (35-46); PO2 ABG 155 mm/Hg (80-95); pH ABG 7.49 (7.35-7.45)
--- NOTE | 2019-10-12 14:41 | XRay Report ---
XR chest 1V portable HISTORY: 28 years-old Female hypoxia acute hypoxia COMPARISON: Chest radiograph 06/09/2016 TECHNIQUE: Portable AP view of the chest FINDINGS: Cardiomediastinal and hilar silhouettes are within normal limits. No pneumothorax, pleural effusion, focal airspace consolidation or overt pulmonary edema. Bones of the chest appear grossly intact. IMPRESSION: No acute process. The above report was generated using voice recognition software. It may contain grammatical, syntax o r spelling errors. Electronically signed by: Johan Mackey M.D. 10/12/2019 2:40 PM
[2019-10-12] MEDS: LEVALBUTEROL 1.25MG/0.5ML NEB NEB SCH ×3 (14:43→23:45)
[2019-10-12] MEDS ORDERED: FUROSEMIDE 20 MG in SYRINGE 0 ML IV ONE (14:45)
[2019-10-12] MEDS ORDERED: methylPREDNISolone 60 MG in SYRINGE 0 ML IV ONE (14:45)
[2019-10-12 16:24] LABS: Allen Test POS (Pos)
[2019-10-12] MEDS: ERTAPENEM SODIUM 1,000 MG in SODIUM CHLORIDE 0.9% 50 ML IV SCH (18:09)
[2019-10-12] MEDS: methylPREDNISolone 40 MG in SYRINGE 0 ML IV SCH (20:03)
[2019-10-12] MEDS: DULOXETINE HCL 30 MG CAP PO SCH (20:03)
[2019-10-12] MEDS: FLUTICASONE/SALMETEROL 250/50 (ADVAIR) 14 PUFF/1 INHALER INH SCH (20:03)
[2019-10-13] MEDS: methylPREDNISolone 40 MG in SYRINGE 0 ML IV SCH (03:41)
[2019-10-13] MEDS: LEVALBUTEROL 1.25MG/0.5ML NEB NEB SCH ×2 (03:56→07:28)
--- NOTE | 2019-10-13 05:25 | Communication Note ---
Date of Service: October 13, 2019 Made aware by RN of gram-positive cocci in clusters 1 bottle of blood cultures. AP Gram-positive bacteremia Repeat blood cultures x2 IV Daptomycin for now Will relay to him provider.
[2019-10-13] MEDS ORDERED: CONSULT PHARMACY PRN (05:29)
[2019-10-13] MEDS ORDERED: DAPTOMYCIN CONSULT ACTIVE PRN (05:32)
[2019-10-13] MEDS: DAPTOmycin 450 MG in SYRINGE 0 ML IV SCH (05:58)
[2019-10-13 06:26] LABS: Creatinine Clr Calc Pharmacy 94.5 ml/min; Est GFR (African American) 118.1; Est GFR (Non-African American) 101.9
[2019-10-13] MEDS ORDERED: LEVALBUTEROL HCL 1.25 MG/3 ML NEB NEB SCH (07:45)
[2019-10-13] MEDS: FLUTICASONE/SALMETEROL 250/50 (ADVAIR) 14 PUFF/1 INHALER INH SCH ×2 (07:57→20:00)
[2019-10-13] MEDS: AMPHETAMINE ASP/SULF/DEXTRAMPH ER 20 MG CAP PO SCH (07:57)
[2019-10-13] MEDS: LORazepam 1 MG TAB PO SCH ×3 (07:57→19:59)
[2019-10-13] MEDS: DULOXETINE HCL 60 MG CAP PO SCH (07:58)
[2019-10-13] MEDS: ENOXAPARIN INJ 40 MG/0.4 ML SYR SQ SCH (07:58)
[2019-10-13] MEDS ORDERED: LEVALBUTEROL HCL 1.25 MG/3 ML NEB NEB PRN (11:28)
--- NOTE | 2019-10-13 11:29 | Hospitalist Progress Note ---
Date of Service October 13, 2019 Assessment & Plan (1) Sepsis: (2) Pyelonephritis: per Dr. Alvarado notes: This is a 28-year-old female with history of depression, anxiety, ADD, migraine headaches and history of petit mall seizures who presents with worsening right upper quadrant pain x3 days and was found to have sepsis 2/2 acute right pyelonephritis. -Febrile at 38.5, tachycardic at 110, leukocytosis of 11.7k. Meets sepsis criteria per CMS guidelines -UA grossly abnormal. CT abd/pelvis with findings consistent with right renal pyelonephritis - Urine culture: E coli Blood cultures: 1 bottle gram-positive cocci -Afebrile since yesterday and WBC improving continue Ertapenem, daptomycin ff up cultures -ID consulted hold off on IV fluids given wheezing yesterday (3) Asthma exacerbation: CXR:Cardiomediastinal and hilar silhouettes are within normal limits. No pneumothorax, pleural effusion, focal airspace consolidation or overt pulmonary edema. Bones of the chest appear grossly intact. ABG : pending -- started Nebs q4h, Advair, Solumedrol q8h --Resolved --Continue Advair, nebs as needed, DC Solu-Medrol and transition to prednisone 40 mg daily then taper x3 days (4) Hypokalemia: K of 3.1 in setting of poor PO intake, GI losses - resolved (5) History of petit-mal seizures: per admitting service notes: History of reported petit mal seizures but not recorderd on EEG -Has never been on seizure medications. In transitioning to [facility] neuro group (6) Depression: Continue Cymbalta (7) ADD (attention deficit disorder): Continue Adderall (8) Anxiety: Continue Ativan PRN DVT Ppx: Early ambulation, albertina hose , LOVENOX Code status: FULL PCP: Rakesh Dispo: Observation med tele. Plan to return home once medically stable. Subjective Follow-up for pyelonephritis Seen with SUSAN Lopez at the bedside throughout whole encounter Seen resting in bed, comfortable, not in distress States she feels improved compared to yesterday Right upper quadrant/flank pain almost resolved No problems with urination Breathing is fine, no coughing No other symptoms Review of Systems Review of Systems: All systems reviewed & are unremarkable except as noted in HPI & below Physical Exam Physical Exam: General- oriented x 3, not in distress, speaks in sentences with no effort or accessory muscle use Eyes- anicteric Neck- no JVD Lungs- clear breath sounds bilaterally, no rales/wheezes Heart- normal rate, regular rhythm; no murmurs Abdomen- normal bowel sounds, nondistended, soft, nontender No CVA tenderness Extremities- no pretibial edema, no calf tenderness Neuro- alert, oriented x 3; no gross focal neurologic deficits Skin- warm & dry Results & Data Vital Signs (Past 12 Hours) Vital Signs Temp Pulse Pulse Resp BP Pulse Ox 10/13/19 10:56 115 H 18 98 10/13/19 09:25 105 H 10/13/19 07:44 36.7 C 108 H 18 118/73 98 10/13/19 07:30 87 18 98 10/13/19 03:56 92 H 18 97 10/13/19 03:46 36.9 C 96 H 19 109/70 97 10/12/19 23:54 105 H 10/12/19 23:49 100 H 117/68 100 Laboratory Results Laboratory Results - last 24 hr 10/11/19 10/13/19 16:29 05:19 Creatinine 0.79 Est Cr Clr Drug Dosing 94.5 Est GFR ( Amer) 118.1 Est GFR (Non-Af Amer) 101.9 Bld Cult Staph aureus PCR Negative Blood Culture MRSA PCR Negative
[2019-10-13] MEDS: LEVALBUTEROL HCL 0.63 MG/3 ML NEB NEB SCH ×2 (11:54→15:10)
[2019-10-13] MEDS: AMPHETAMINE ASP/SULF/DEXTRAMPH 10 MG TAB PO SCH (12:03)
--- NOTE | 2019-10-13 14:26 | Infectious Disease Consult ---
Date of Consultation October 13, 2019 Assessment & Plan (1) Pyelonephritis: can continue current abx for now, suspect gpc is contaminant, will follow final. 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 History of Present Illness Attending Physician: Sánchez Marina MD pt admitted with ruq pain and fever 101+ x [address] abd/pelvis in ER revealed right pyelo. urine culture is growing E. coli x 2, 1 pansensitive, 1 resistant to bactrim only. Initially had fever, now resolved. still with some abd pain but feeling better. no n/v/d, but nausea overnight. no gu symptoms. UA >30 wbc +4 bacteria. blood cultures from ER 11/09 with gpc, repeat pending. On ertapenem and dapto, tolerating well. asking to go home tomorrow. wbc improved from 11 to 9 Allergies Allergy/AdvReac Type Severity Reaction Status Date / Time bee venom protein (honey bee) Allergy Severe Anaphylaxis Verified 10/11/19 12:36 hornet venom Allergy Severe Anaphylaxis Verified 10/11/19 12:36 shellfish derived Allergy Severe Anaphylaxis Verified 10/11/19 12:36 cephalexin Allergy Intermediate hives Verified 10/11/19 12:36 mushroom Allergy Intermediate hives Verified 10/11/19 12:36 Penicillins Allergy Intermediate hives Verified 10/11/19 12:36 sumatriptan [From Imitrex] Allergy Intermediate Hives Verified 10/11/19 12:36 Home Medications Home Medications Medication Instructions Recorded Confirmed Type dextroamphetamine-amphetamine 10 mg PO DAILY@1230 10/11/19 10/11/19 History dextroamphetamine-amphetamine 40 mg PO DIRECTED 10/11/19 10/11/19 History duloxetine 30 mg PO HS 10/11/19 10/11/19 History duloxetine 60 mg PO DAILY 10/11/19 10/11/19 History lorazepam 1 mg PO TID 10/11/19 10/11/19 History Patient History Medical History ADD (attention deficit disorder) History of petit-mal seizures (Chronic) History of seizures Patient has a history of petit mal seizures, follows Neuro in [place]. Currently on no medications. Per patient's significant other, patient's last seizure activity was in 2018. Severe pre-eclampsia affecting first 2008-Induced at 34 weeks with twin due to preeclampsia Twin 2008 Surgical History History of History of cataract surgery Family History Grandmother (Maternal) Diabetes Cervical cancer Grandfather (Paternal) Stroke Mother Cancer Ovarian and breast cancer Aunt Uterine cancer Breast cancer Social History Preferred Language: Danish Communication Ability: Effective Telephone Worker Required: No Beliefs That Will Affect Care: None marital status: Single Current Living Situation: Significant Other Other Information That Helps Us Care for You: No Feels Safe at Home: Yes Safety Concerns: Feels Safe At This Time Smoking Status: Former smoker Second Hand Exposure: No ; Hx Alcohol Use: No Hx Substance Use: Yes substance use type: marijuana Last Used Substance: Days (ago) Review of Systems Review of Systems: All systems reviewed & are unremarkable except as noted in HPI & below Physical Exam Constitutional: WD/WN, vitals as above Eyes: PERRL, conjunctivae normal, anicteric sclerae ENMT: external ear and nose normal, oropharynx normal Neck: normal visual inspection Respiratory: normal respiratory effort, lungs clear to auscultation Cardiovascular: RRR, no murmur, no edema Gastrointestinal (Abdomen): normal bowel sounds, soft, nontender, no hepatosplenomegaly Musculoskeletal: no cyanosis or clubbing, extremities motor strength 5/5 Skin: no rashes, warm and dry Psychiatric: A+Ox3, euthymic affect Results & Data Vital Signs (Past 12 Hours) Vital Signs Temp Pulse Pulse Resp BP Pulse Ox 10/13/19 11:34 36.7 C 128 H 18 117/57 L 97 10/13/19 10:56 115 H 18 98 10/13/19 09:25 105 H 10/13/19 07:44 36.7 C 108 H 18 118/73 98 10/13/19 07:30 87 18 98 10/13/19 03:56 92 H 18 97 10/13/19 03:46 36.9 C 96 H 19 109/70 97 Laboratory Results Microbiology 10/11/19 15:04 Urine,Clean Catch Urine Culture - Final Escherichia coli Escherichia coli#2 10/11/19 16:29 Blood Aerobic Blood Culture - Preliminary Gram positive cocci clusters 10/11/19 16:29 Blood Anaerobic Blood Culture - Preliminary No growth in Anaerobic bottle after 24 hours. 10/11/19 16:39 Blood Aerobic Blood Culture - Preliminary No growth in Aerobic bottle after 24 hours. 10/11/19 16:39 Blood Anaerobic Blood Culture - Preliminary No growth in Anaerobic bottle after 24 hours. PG Care Time/CCT Total # of Minutes Spent Total Time Spent with Patient: Total time spent is greater than 50% in coordination of care (as documented) at patient's floor/unit and/or counseling patient:
[2019-10-13] MEDS: ERTAPENEM SODIUM 1,000 MG in SODIUM CHLORIDE 0.9% 50 ML IV SCH (17:16)
[2019-10-13] MEDS ORDERED: LEVALBUTEROL HCL 0.63 MG/3 ML NEB NEB PRN (17:43)
[2019-10-13] MEDS: OXYCODONE HCL IR 5 MG TAB (IMMEDIATE RELEASE) PO PRN (18:14)
[2019-10-13] MEDS: DULOXETINE HCL 30 MG CAP PO SCH (20:00)
[2019-10-14] MEDS: OXYCODONE HCL IR 5 MG TAB (IMMEDIATE RELEASE) PO PRN ×2 (03:41→14:08)
[2019-10-14] MEDS: DAPTOmycin 450 MG in SYRINGE 0 ML IV SCH (05:47)
[2019-10-14 06:54] LABS: Est GFR (African American) 142.2; Est GFR (Non-African American) 122.7
[2019-10-14] MEDS: LORazepam 1 MG TAB PO SCH ×2 (08:35→14:08)
[2019-10-14] MEDS: AMPHETAMINE ASP/SULF/DEXTRAMPH ER 20 MG CAP PO SCH (08:35)
[2019-10-14] MEDS: DULOXETINE HCL 60 MG CAP PO SCH (08:36)
[2019-10-14] MEDS: ENOXAPARIN INJ 40 MG/0.4 ML SYR SQ SCH (08:36)
[2019-10-14] MEDS: FLUTICASONE/SALMETEROL 250/50 (ADVAIR) 14 PUFF/1 INHALER INH SCH (08:36)
[2019-10-14] MEDS: AMPHETAMINE ASP/SULF/DEXTRAMPH 10 MG TAB PO SCH (12:50)
--- NOTE | 2019-10-14 13:23 | Hospitalist Progress Note ---
Date of Service October 14, 2019 Assessment & Plan (1) Pyelonephritis: (1) Sepsis: (2) Pyelonephritis: per Dr. Alvarado notes: This is a 28-year-old female with history of depression, anxiety, ADD, migraine headaches and history of petit mall seizures who presents with worsening right upper quadrant pain x3 days and was found to have sepsis 2/2 acute right pyelonephritis. -Febrile at 38.5, tachycardic at 110, leukocytosis of 11.7k. Meets sepsis criteria per CMS guidelines -UA grossly abnormal. CT abd/pelvis with findings consistent with right renal pyelonephritis - Urine culture: E coli (pansensitive, except bactrim) Blood cultures: 1 bottle Micrococcus species, likely contaminant - given Ertapenem, daptomycin in light of penicillin, cephalosporin allergies ID consulted - fever resolved leukocytosis improved - clinically improved as well - discharge plan: Levaquin 500mg po daily x 14 days advised to take probiotics, yogurt daily x 3 weeks at least (3) Asthma exacerbation: developed mild wheezing and dyspnea while admitted CXR:Cardiomediastinal and hilar silhouettes are within normal limits. No pneumothorax, pleural effusion, focal airspace consolidation or overt pulmonary edema. Bones of the chest appear grossly intact. -- given Nebs q4h, Advair, Solumedrol q8h -- Resolved -- Continue Advair, and PRN Ventolin ff up with PCP this week (4) Hypokalemia: K of 3.1 in setting of poor PO intake, GI losses - resolved (5) History of petit-mal seizures: per admitting service notes: History of reported petit mal seizures but not recorderd on EEG -Has never been on seizure medications (6) Depression: Continue Cymbalta (7) ADD (attention deficit disorder): Continue Adderall (8) Anxiety: Continue Ativan PRN plan of care discussed with patient in detail and at length all questions answered she is understanding, comfortable, agreeable with plan of care Subjective ff up for pyelonephritis seen resting in chair, comfortable, in good spirits CRISPIN Vasquez present through whole encounter states she feels much better RUQ/Flank pain resolved, no problems with urination no feve/chills breathing back to baseline, no dyspnea/cough no other symptoms states she is ready and would like to be discharged today Review of Systems Review of Systems: All systems reviewed & are unremarkable except as noted in HPI & below Physical Exam Physical Exam: General- oriented x 3, not in distress, speaks in sentences with no effort or accessory muscle use Eyes- anicteric Neck- no JVD Lungs- clear breath sounds , no wheezing, no crackles bilaterally Heart- normal rate, regular rhythm; no murmurs Abdomen- normal bowel sounds, nondistended, soft, nontender no CVA tenderness Extremities- no pretibial edema, no calf tenderness Neuro- alert, oriented x 3; no gross focal neurologic deficits Skin- warm & dry Results & Data Vital Signs (Past 12 Hours) Vital Signs Temp Pulse Pulse Resp BP BP Pulse Ox 10/14/19 11:12 70 10/14/19 11:00 36.6 C 102 H 18 133/76 98 10/14/19 07:24 36.5 C 79 18 120/72 97 10/14/19 03:25 36.6 C 84 16 107/68 98 Laboratory Results Laboratory Results - last 24 hr 10/14/19 05:30 Creatinine 0.62 Est Cr Clr Drug Dosing 122.0 Est GFR ( Amer) 142.2 Est GFR (Non-Af Amer) 122.7
--- NOTE | 2019-10-14 13:45 | Discharge Summary ---
Date of Service October 14, 2019 Admission HPI Per Admitting Provider This is a 28-year-old female with history of depression, anxiety, ADD, migraine headaches and history of petit mall seizures who presents with worsening right upper quadrant pain x3 days. Patient states that pain is sharp and constant with intermittent pain wrapping around to her right back. Associated with fever with a T-max of 102, chills, lightheadedness, nausea and decreased appetite. Also endorses 4 episodes of vomiting today after eating. Denies any dysuria, hematuria or pyuria. Normal urinary urgency and frequency. Denies visual changes, chest pain, palpitations, shortness of breath, hematemesis, diarrhea or constipation. Patient recently stopped smoking cigarettes but endorses smoking marijuana 4-5 times per week to help manage anxiety and migraines. Admission Exam Per Admitting Provider General Appearance: WD/WN, vitals as above, NAD, lying in bed, conversing easily, appears acutely ill Head: normocephalic, atraumatic Eyes: normal inspection, PERRL, conjunctivae normal, anicteric sclerae ENT: external ear and nose normal, oropharynx normal Neck: trachea midline, no thyromegaly normal visual inspection Respiratory: normal respiratory effort, lungs clear to auscultation, no wheeze, rales, rhonchi. Normal insp/exp effort, no accessory muscle use Cardiovascular: tachycardic rate, rhythm, no murmur appreciated, normal peripheral pulses. Vessels: no JVD or carotid bruit Chest: normal inspection of chest Abdomen/GI: normal bowel sounds, soft, TTP of RUQ and RLQ, no guarding, no hepatosplenomegaly : + R CVA tenderness Extremities/Musculoskelatal: no cyanosis or clubbing, extremities motor strength 5/5 Neurologic: PERRL, EOMI, accommodation nl, no face palsy, no dysarthria CN's II-XI intact bilaterally and moves all extremities Psychiatric: A+Ox3, euthymic affect Skin: no rashes, normal color, warm/dry Principal Diagnosis ACUTE PYELONEPHRITIS, RIGHT Discharge Exam General- oriented x 3, not in distress, speaks in sentences with no effort or accessory muscle use Eyes- anicteric Neck- no JVD Lungs- clear breath sounds , no wheezing, no crackles bilaterally Heart- normal rate, regular rhythm; no murmurs Abdomen- normal bowel sounds, nondistended, soft, nontender no CVA tenderness Extremities- no pretibial edema, no calf tenderness Neuro- alert, oriented x 3; no gross focal neurologic deficits Skin- warm & dry Discharge Data Allergies Allergy/AdvReac Type Severity Reaction Status Date / Time bee venom protein (honey bee) Allergy Severe Anaphylaxis Verified 10/11/19 12:36 hornet venom Allergy Severe Anaphylaxis Verified 10/11/19 12:36 shellfish derived Allergy Severe Anaphylaxis Verified 10/11/19 12:36 cephalexin Allergy Intermediate hives Verified 10/11/19 12:36 mushroom Allergy Intermediate hives Verified 10/11/19 12:36 Penicillins Allergy Intermediate hives Verified 10/11/19 12:36 sumatriptan [From Imitrex] Allergy Intermediate Hives Verified 10/11/19 12:36 Consultations 10/11/19 14:52 ED Decision to Admit Stat 10/13/19 07:31 Consult Infectious Diseases Routine Ordered Studies 10/11/19 11:56 US gallbladder Stat IMPRESSION: No significant abnormality identified within the right upper quadrant. 10/11/19 13:35 CT abd pelvis IV con only CT DOSE: 400.07 mGy.cm HISTORY: Nausea. Vomiting. Fever. vomiting, RUQ abd pain, fever TECHNIQUE: Multiaxial CT images of the abdomen and pelvis were performed following the use of intravenous contrast. A dose lowering technique was utilized adhering to the principles of ALARA. COMPARISON STUDY: 02/01/2015 FINDINGS: The liver spleen pancreas are unremarkable. Lung bases are considered clear. Right kidney shows heterogeneous enhancement primarily at the lower and mid pole region. This is associated with mild perinephric infiltrative change. There is a small low-density focus mid left kidney unchanged from the prior exam. No evidence for hydronephrosis. Nonobstructive bowel pattern. Normal appendix. 2 cm left ovarian cyst. Moderate amount of free fluid within the pelvic cul-de-s ac most likely physiologic. Mild bladder wall thickening. Possibility of cystitis is considered. IMPRESSION: 1. Findings consistent with right renal pyelonephritis. 2. Mild right perinephric fat infiltrative change. 3. Mild bladder wall thickening which may indicate a component of cystitis. 4. Study is otherwise unremarkable. 5. note is made of a 2 cm left ovarian cyst with moderate amount of free fluid within the pelvic cul-de-sac. The above report was generated using voice recognition software. It may contain grammatical, syntax or spelling errors. Electronically signed by: Clem Grimaldo M.D. 10/11/2019 2:28 PM Dictated: 10/11/191423 Transcribed: 10/11/191423 Hospital Course (1) Pyelonephritis: (1) Sepsis: (2) Pyelonephritis: per Dr. Alvarado notes: This is a 28-year-old female with history of depression, anxiety, ADD, migraine headaches and history of petit mall seizures who presents with worsening right upper quadrant pain x3 days and was found to have sepsis 2/2 acute right pyelonephritis. -Febrile at 38.5, tachycardic at 110, leukocytosis of 11.7k. Meets sepsis criteria per CMS guidelines -UA grossly abnormal. CT abd/pelvis with findings consistent with right renal pyelonephritis - Urine culture: E coli (pansensitive, except bactrim) Blood cultures: 1 bottle Micrococcus species, likely contaminant - given Ertapenem, daptomycin in light of penicillin, cephalosporin allergies ID consulted - fever resolved leukocytosis improved - clinically improved as well - discharge plan: Levaquin 500mg po daily x 14 days advised to take probiotics, yogurt daily x 3 weeks at least (3) Asthma exacerbation: developed mild wheezing and dyspnea while admitted CXR:Cardiomediastinal and hilar silhouettes are within normal limits. No pneumothorax, pleural effusion, focal airspace consolidation or overt pulmonary edema. Bones of the chest appear grossly intact. -- given Nebs q4h, Advair, Solumedrol q8h -- Resolved -- Continue Advair, and PRN Ventolin ff up with PCP this week (4) Hypokalemia: K of 3.1 in setting of poor PO intake, GI losses - resolved (5) History of petit-mal seizures: per admitting service notes: History of reported petit mal seizures but not recorderd on EEG -Has never been on seizure medications (6) Depression: Continue Cymbalta (7) ADD (attention deficit disorder): Continue Adderall (8) Anxiety: Continue Ativan PRN (9) Left Ovarian Cyst 2cm, seen on CT abd/pelvis, please refer to full report in the Ordered studies above please follow up as outpatient plan of care discussed with patient in detail and at length all questions answered she is understanding, comfortable, agreeable with plan of care Total Time Total Time Spent Total Time Spent (In Minutes): 40 minutes Discharge Plan Discharge Items Patient Disposition: Home - Self-Care Reason For Visit: ACUTE R PYELONEPHRITIS Discharge Diagnosis: KIDNEY INFECTION, RIGHT Activity: As commented below Activity Comment: NO HEAVY EXERTION, RESUMEA ACTIVITY GRADUALLY TOLERATED Exercise/Sports: Wait until after follow-up appointment Non-emergency contact: Primary Care Provider Call non-emergency contact if: you have any medication questions, your symptoms worsen, your pain is not controlled, your pain is worsening, your pain is unusual for you, your pain is concerning for you and you have a fever Follow-up/Referrals: Concetta Pruett MD [Primary Care Provider] - Diet: Regular Addtl Attending Provider Instructions: PLEASE CALL PRIMARY CARE PHYSICIAN OR RETURN TO THE ER IF WITH RECURRENCE/WORSENING OF SYMPTOMS. PLEASE REVIEW YOUR NEW MEDICATIONS AND FOLLOW INSTRUCTIONS CAREFULLY. TAKE PROBIOTICS, INCLUDE YOGURT IN YOUR DAILY DIET X 3 WEEKS. DRINK PLENTY OF FLUIDS. Pending Studies at Discharge: No Stand-Alone Forms: My [facility] [place], Smoking Cessation Medications and DC Order Prescriptions: New fluticasone propion-salmeterol [Advair Diskus] 250-50 mcg/dose Blister With Device 1 ea inhalation BID 14 Days Qty: 60 RF: 1 levofloxacin [Levaquin] 500 mg tablet 500 mg PO DAILY 14 Days Qty: 14 RF: 0 albuterol sulfate [Ventolin HFA] 90 mcg/actuation HFA aerosol inhaler 2 puffs INH Q4H PRN (Reason: shortness of breath or wheezing) Qty: 8 RF: 0 Continued dextroamphetamine-amphetamine 10 mg tablet 10 mg PO DAILY@1230 RF: 0 dextroamphetamine-amphetamine 20 mg capsule,extended release 24hr 40 mg PO DIRECTED RF: 0 lorazepam 1 mg tablet 1 mg PO TID RF: 0 duloxetine 30 mg capsule,delayed release(DR/EC) 30 mg PO HS RF: 0 duloxetine 30 mg capsule,delayed release(DR/EC) 60 mg PO DAILY RF: 0 Discharge Orders: Discharge Order (Routine); Ordered 10/14/19 Ordered By: Sánchez Marina Admission Data Admit Date/Time: 10/11/19 19:36 Attending Provider: Sánchez Marina Admit Provider: Kylie Nobles Primary Care Provider: Concetta Pruett Other Providers: Kylie Nobles ; Viry Wise
== END 2019-10-14 15:10 | disposition home or self-care (01) | DRG 872 ==
LOC: 2N 11:42 → ED 11:42 → 2N 17:07 → SUATTDRO 19:36

== ENCOUNTER 2023-08-30 19:03 | Inpatient (IN) ==
[2023-08-30] MEDS ORDERED: ONDANSETRON INJ 2 MG/ML 2 ML VIAL IV STA (19:11)
[2023-08-30 20:58] LABS: Pregnancy Test, Serum Negative (Negative)
[2023-08-30 21:01] LABS: Basophils # (auto) 0.03 K/uL (0.00-0.20); Basophils % (auto) 0.2 %; Eosinophils # (auto) 0.01 K/uL (0.00-0.50); Eosinophils % (auto) 0.1 %; Hematocrit (blood only) 39.7 % (37.0-47.0); Hemoglobin 13.9 g/dl (12.0-16.0); Immature Granulocytes # (auto) 0.04 K/uL (0.01-0.20); Immature Granulocytes % (auto) 0.3 %; Lymphocytes # (auto) 1.29 K/uL (1.20-3.40); Lymphocytes % (auto) 10.7 %; Mean Corpuscular Hemoglobin 31.3 pg (25.0-34.0); Mean Corpuscular Volume 89.4 fL (80.0-100.0); Mean Platelet Volume 10.3 fL (9.4-12.4); Monocytes # (auto) 1.07 K/uL (0.11-0.59); Monocytes % (auto) 8.9 %; Neutrophils # (auto) 9.63 K/uL (1.40-6.50); Neutrophils % (auto) 79.8 %; Platelet Count 243 K/uL (130-400); RDW Coefficient of Variation 11.4 % (11.5-14.5); RDW Standard Deviation 36.8 fL (36.4-46.3); Red Blood Count 4.44 M/uL (4.20-5.40); White Blood Count 12.07 K/ul (4.8-10.8)
[2023-08-30 21:03] LABS: Alanine Aminotransferase 37 U/L (7-52); Albumin Globulin Ratio 1.4 (0.9-2); Albumin Level 4.6 gm/dl (3.4-5.0); Alkaline Phosphatase 73 U/L (34-104); Anion Gap 7 (3-11); Aspartate Aminotransferase 32 U/L (13-39); BUN Creatinine Ratio 14.3 (10-20); Bilirubin,Total 2.3 mg/dl (0.2-1.0); Blood Urea Nitrogen 14 mg/dl (6-23); Calcium 9.9 mg/dl (8.6-10.3); Carbon Dioxide 25 mmol/L (21-32); Chloride 103 mmol/L (98-107); Est GFR (African American) 88.5 ml/min; Est GFR (Non-African American) 76.3 ml/min; Globulin 3.4 gm/dl (2.5-4.0); Glucose 111 mg/dl (70-99(Fasting)); Lipase 14 U/L (11-82); Potassium 3.5 mmol/L (3.5-5.1); Sodium 135 mmol/L (136-145)
[2023-08-31] MEDS ORDERED: ONDANSETRON INJ 2 MG/ML 2 ML VIAL IV STA (00:28)
[2023-08-31] MEDS ORDERED: SODIUM CHLORIDE 0.9% 1,000 ML IV ONE (00:28)
[2023-08-31] MEDS: HYDROmorphone INJ 0.5 MG/0.5 ML SYR IV PRN ×3 (00:56→02:33)
[2023-08-31] MEDS ORDERED: OPTIRAY 320 100ml IV ONE (02:32)
[2023-08-31] MEDS ORDERED: metroNIDAZOLE 500 MG/100 ML BAG IV STA (02:37)
[2023-08-31] MEDS ORDERED: CIPROFLOXACIN / D5W 400 MG/200 ML BAG IV STA (02:37)
[2023-08-31] MEDS ORDERED: ACETAMINOPHEN 325 MG TAB PO PRN (03:05)
[2023-08-31] MEDS ORDERED: NSS + 20MEQ KCL 20 MEQ/1,000 ML BAG IV ONE (03:06)
--- NOTE | 2023-08-31 03:25 | Emergency Department Note ---
Impression & Plan Right upper quadrant abdominal pain, Nausea & vomiting, Leukocytosis, Elevated LFTs ED Provider Note NAME: QUINTEN GASCA AGE: 32 SEX: Female INFORMANT: Patient ED PROVIDER(S): Codey Hammonds MD CHIEF COMPLAINT: Right upper quadrant abdominal pain PLAN: Disposition: Admitted Outpatient prescription management: none Referral: None MEDICAL DECISION MAKING: Patient present because right upper quadrant abdominal pain. An IV was established. Blood work is obtained. Patient was hydrated. She was given IV Zofran. She was having nausea and dry heaves. She was given second dose of IV Zofran and a dose of Dilaudid. This did help with her pain. She was more comfortable. She had a leukocytosis on CBC. Chemistry panel was unremarkable. LFTs revealed an elevation of bilirubin. The leukocytosis and bilirubin elevation are new compared to prior. Patient had a urinalysis ordered. She underwent CT imaging of the abdomen and pelvis and per my interpretation she did have a large gallbladder but there was no significant stranding or abscess. No free air. Given the leukocytosis, pain, and LFT elevation I did was concerned about a biliary source. I did order an ultrasound for further evaluation. I discussed further management in the hospital with the patient and she was in agreement. She was given a dose of IV Cipro and Flagyl for empiric treatment. [facility] Case discussed and diagnostics were reviewed. Patient will be evaluated in the ER for further management. Care/management discussed with: Discussed with manager architectural Level of care consideration(s): After review of the information above and other included data, I feel the patient requires escalation of care to admission Triage Nursing notes: reviewed and agree them. Vital Signs: reviewed and remarkable for no significant abnormalities Additional History obtained from: none Chronic Medical/Social Conditions affecting care: none Prior/ Outside/ External records reviewed: Prior ED records and laboratory testing reviewed. Differential Diagnosis: Etiologies such as biliary pathology, gastroenteritis, food borne illness, in fections, appendicitis, diverticulitis, inflammatory bowel disease, GI bleed, as well as others were entertained. Diagnostics, independently interpreted by me: ECG: Twelve-lead ECG reveals a normal sinus rhythm at 95 bpm. Anterior T wave inversions present. When compared to 08/07/2023 these are unchanged. Cardiac Monitoring: Cardiac monitoring ordered by me: The patient was placed on continuous cardiac monitoring and observed. It revealed a normal sinus rhythm at 96 beats per minute without ectopy or evidence of dysrhythmia. Medical decision rules: none Imaging studies: Chest x-ray. Findings: A chest x-ray was performed and revealed no pneumothorax, effusion, infiltrate, pulmonary edema, free air under the diaphragm, or wide mediastinum. Impression: No acute disease. CT scan of the abdomen pelvis reveals a sizable gallbladder without evidence of abscess or perforation. Radiology read pending. HPI: 32 year old Female arrives for evaluation of right quadrant abdominal pain. This has been escalating over the last few weeks. Patient was seen in the emergency department on August 07. Concerns for gallbladder were noted. Patient had an unremarkable ultrasound and lab work. Patient was discharged. Patient followed up with PCP. She noted CT imaging was ordered however there were scheduling conflicts and the patient has not had this done yet. Over the last several days she had escalation of pain, nausea and vomiting. Patient rated her pain as a 10 out of 10. Unable to keep down food or water. Patient presented to the emergency department for further evaluation. She also noted feeling feverish and chilled. Pt denies LOC, headache, diaphoresis, visual changes, neck pain, chest pain, breathing difficulties, back pain, melena, hematochezia, urinary symptoms, numbness, weakness, lymphadenopathy, rash, or other complaints.. PAST MEDICAL HISTORY: See Below, ADHD PAST SURGICAL HISTORY: See Below, SOCIAL HISTORY: See Below, no alcohol HOME MEDICATIONS: See Below ALLERGIES: See Below VITALS: See Below PHYSICAL EXAMINATION: GENERAL: Awake, alert, uncomfortable-appearing, in no distress HENT: Normocephalic, atraumatic. Oropharynx unremarkable. EYES: Normal conjunctiva. Sclera non-icteric. NECK: Inspection normal. Non-tender. Supple. No nuchal rigidity. FROM. No masses. RESPIRATORY: Clear to auscultation. No wheezes. No rales. Normal respiratory effort. CARDIAC: Normal rate. Normal rhythm. No murmurs. No rubs. Extremities warm and well perfused. Pulses equal. No JVD. GI: Soft, non-distended. Right upper quadrant tenderness to palpation. Positive Vitale sign. No rebound or guarding. No masses. RECTAL: Deferred. MUSCULOSKELETAL: Atraumatic. Chest examination reveals no tenderness. The back is symmetrical on inspection without obvious abnormality. There is no CVA tenderness to palpation. No joint edema. LOWER EXTREMITIES: Calves are equal size bilaterally and non-tender. No edema. N o discoloration. NEURO: Normal sensorium. No sensory or motor deficits noted. SKIN: No rash or jaundice noted. PROCEDURES: none CRITICAL CARE: none OBSERVATION NOTE: none Past Med/Surg History Medical History (Updated 08/31/23 @ 03:25 by Codey Hammonds MD) ADD (attention deficit disorder) History of petit-mal seizures History of seizures Patient has a history of petit mal seizures, follows Neuro in [place]. Currently on no medications. Per patient's significant other, patient's last seizure activity was in 2018. Severe pre-eclampsia affecting first 2008-Induced at 34 weeks with twin due to preeclampsia Twin 2008 Surgical History History of History of cataract surgery Family History Grandmother (Maternal) Diabetes Cervical cancer Grandfather (Paternal) Stroke Mother Cancer Ovarian and breast cancer Aunt Uterine cancer Breast cancer Social History Smoking Status: Never smoker Tobacco Type: Cigarettes Second Hand Exposure: No; Do You Dip or Chew Tobacco: No; Hx Alcohol Use: No Hx Substance Use: Yes Last Used Substance: Days (ago) Preferred Language: Croatian Communication Ability: Effective Social Science Research Assistant Required: No Beliefs That Will Affect Care: None marital status: Single Current Living Situation: Significant Other Feels Safe at Home: Yes Assistive Devices: None Allergies Allergies Allergy/AdvReac Type Severity Reaction Status Date / Time bee venom protein (honey bee) Allergy Severe Anaphylaxis Verified 10/21/22 19:06 hornet venom Allergy Severe Anaphylaxis Verified 10/21/22 19:06 shellfish derived Allergy Severe Anaphylaxis Verified 10/21/22 19:06 cephalexin Allergy Intermediate hives Verified 10/21/22 19:06 mushroom Allergy Intermediate hives Verified 10/21/22 19:06 Penicillins Allergy Intermediate hives Verified 10/21/22 19:06 sumatriptan [From Imitrex] Allergy Intermediate Hives Verified 10/21/22 19:06 Home Meds Home Medications Medication Instructions Recorded Confirmed dextroamphetamine-amphetamine ER 40 mg PO QAM 10/11/19 10/21/22 20 mg 24hr capsule,extend release epinephrine 0.3 mg/0.3 mL 0.3 mg IM DIRECTED PRN Allergic 05/20/21 10/21/22 injection, auto-injector (EpiPen) Reaction lorazepam 0.5 mg tablet 0.5 mg PO BID PRN Anxiety 05/20/21 10/21/22 prazosin 2 mg capsule 2 mg PO HS 05/20/21 10/21/22 trazodone 100 mg tablet 150 mg PO HS 05/20/21 10/21/22 ascorbic acid (vitamin C) 250 mg 250 mg PO DAILY 10/21/22 10/21/22 chewable tablet (Vitamin C) baclofen 10 mg tablet 10 mg PO TID PRN MUSCLE SPASMS 10/21/22 10/21/22 dextroamphetamine-amphetamine 20 20 mg PO .DAILY @ 1400 10/21/22 10/21/22 mg tablet prazosin 1 mg capsule 1 mg PO HS 10/21/22 10/21/22 pregabalin 50 mg capsule 50 mg PO BID 10/21/22 10/21/22 Previous Rx's Medication Instructions Recorded albuterol sulfate 90 mcg/actuation 2 puffs inhalation Q4H PRN 10/14/19 aerosol inhaler (Ventolin HFA) shortness of breath or wheezing #8 grams hydrocodone 5 mg-acetaminophen 325 1 - 2 tab PO Q6H PRN pain #20 tabs 10/21/22 mg tablet ondansetron 4 mg disintegrating 4 mg PO Q6H PRN nausea and 10/21/22 tablet vomiting #20 tabs oxycodone 5 mg tablet 5 mg PO Q6H PRN pain #14 tabs 08/07/23 Results & Data (ED) Vital Signs Vital Signs - 24 hr 08/30/23 19:07 08/31/23 00:55 08/31/23 01:00 Temperature Source Oral Pulse Rate 99 H 90 93 H Pulse Rhythm Regular Pulse Strength Normal Respiratory Rate 20 18 Respiratory Effort / Characteristics Non-Labored Spontaneous Respiratory Depth Normal Respiratory Pattern Regular Blood Pressure 95/55 L 109/74 Blood Pressure Mean 68 85 Blood Pressure Position Sitting Pulse Oximetry 100 97 Oxygen Delivery Method Room Air Sepsis Recent Fever Within 48 Hours Yes Sepsis New/Unexplained Change in Mental Status N/A Sepsis Action Taken by Nursing No Action Required 08/31/23 01:30 08/31/23 02:00 08/31/23 02:31 Temperature Source Pulse Rate 88 82 96 H Pulse Rhythm Pulse Strength Respiratory Rate 19 20 17 Respiratory Effort / Characteristics Respiratory Depth Respiratory Pattern Blood Pressure 110/68 110/65 117/72 Blood Pressure Mean 82 80 87 Blood Pressure Position Pulse Oximetry 98 97 96 Oxygen Delivery Method Sepsis Recent Fever Within 48 Hours Sepsis New/Unexplained Change in Mental Status Sepsis Action Taken by Nursing Laboratory Data 08/30/23 20:21 08/30/23 20:21 Lab Results 08/30/23 08/30/23 08/30/23 Range/Units 20:21 20:21 20:21 WBC 12.07 H (4.8-10.8) K/ul RBC 4.44 (4.20-5.40) M/uL Hgb 13.9 (12.0-16.0) g/dl Hct 39.7 (37.0-47.0) % MCV 89.4 (80.0-100.0) fL MCH 31.3 (25.0-34.0) pg MCHC 35.0 (32.0-36.0) g/dL RDW Std Deviation 36.8 (36.4-46.3) fL RDW Coeff of Jeremiah 11.4 L (11.5-14.5) % Plt Count 243 (130-400) K/uL MPV 10.3 (9.4-12.4) fL Immature Gran % (Auto) 0.3 % Neut % (Auto) 79.8 % Lymph % (Auto) 10.7 % [place] % (Auto) 8.9 % Eos % (Auto) 0.1 % Baso % (Auto) 0.2 % Neut # (Auto) 9.63 H (1.40-6.50) K/uL Lymph # (Auto) 1.29 (1.20-3.40) K/uL [place] # (Auto) 1.07 H (0.11-0.59) K/uL Eos # (Auto) 0.01 (0.00-0.50) K/uL Baso # (Auto) 0.03 (0.00-0.20) K/uL Immature Gran # (Auto) 0.04 (0.01-0.20) K/uL Sodium 135 L (136-145) mmol/L Potassium 3.5 (3.5-5.1) mmol/L Chloride 103 (98-107) mmol/L Carbon Dioxide 25 (21-32) mmol/L Anion Gap 7 (3-11) BUN 14 (6-23) mg/dl Creatinine 0.98 (0.6-1.2) mg/dl Est Cr Clr Drug Dosing Not Reportable Est GFR ( Amer) 88.5 ml/min Est GFR (Non-Af Amer) 76.3 ml/min BUN/Creatinine Ratio 14.3 (10-20) Glucose 111 H (70-99(Fasting)) mg/dl Calcium 9.9 (8.6-10.3) mg/dl Total Bilirubin 2.3 H (0.2-1.0) mg/dl AST 32 (13-39) U/L ALT 37 (7-52) U/L Alkaline Phosphatase 73 (34-104) U/L Total Protein 8.0 (6.0-8.3) gm/dl Albumin 4.6 (3.4-5.0) gm/dl Globulin 3.4 (2.5-4.0) gm/dl Albumin/Globulin Ratio 1.4 (0.9-2) Lipase 14 (11-82) U/L HCG, Qual Negative (Negative) Administered Medications Discontinued Medications Hydromorphone HCl (Hydromorphone Inj 0.5 Mg/0.5 Ml Syr) 0.5 mg IV Q15M PRN PRN Reason: Pain Stop: 09/14/23 00:27 Last Admin: 08/31/23 02:33 Dose: 0.5 mg Documented By: Admin: 08/31/23 01:44 Dose: 0.5 mg Documented By: Admin: 08/31/23 00:56 Dose: 0.5 mg Documented By: RADHA Sodium Chloride (Nss) 1,000 mls @ 999 mls/hr IV .Q1H1M ONE Stop: 08/31/23 01:28 Last Infusion: 08/31/23 02:37 Dose: 0 mls/hr Documented By: Admin: 08/31/23 00:55 Dose: 999 mls/hr Documented By: RADHA Ioversol (Optiray 320 100ml) 100 ml IV ONCE ONE Stop: 08/31/23 02:33 Last Admin: 08/31/23 02:32 Dose: 92 ml Documented By: CITLALY Ondansetron HCl (Ondansetron Inj 2 Mg/Ml 2 Ml Vial) 4 mg IV NOW STA Stop: 08/30/23 19:12 Last Admin: 08/30/23 21:15 Dose: 4 mg Documented By: SHIELA Ondansetron HCl (Ondansetron Inj 2 Mg/Ml 2 Ml Vial) 4 mg IV NOW STA Stop: 08/31/23 00:29 Last Admin: 08/31/23 00:55 Dose: 4 mg Documented By: RADHA Discharge Plan Visit Data Chief Complaint: Abdominal Pain Stated Complaint: ABD PAIN, VOMIT, DIZZY ED Provider: Codey Hammonds Discharge Problem: Right upper quadrant abdominal pain, Nausea & vomiting, Leukocytosis, Elevated LFTs Forms Stand Alone Forms: [facility] [employer] Prescriptions Prescriptions: No Action dextroamphetamine-amphetamine 20 mg capsule,extended release 24hr 40 mg PO QAM albuterol sulfate [Ventolin HFA] 90 mcg/actuation HFA aerosol inhaler 2 puffs INH Q4H PRN (Reason: shortness of breath or wheezing) Qty: 8 0RF lorazepam 0.5 mg tablet 0.5 mg PO BID PRN (Reason: Anxiety) trazodone 100 mg tablet 150 mg PO HS epinephrine [EpiPen] 0.3 mg/0.3 mL Auto-Injector 0.3 mg IM DIRECTED PRN (Reason: Allergic Reaction) prazosin 2 mg capsule 2 mg PO HS Rx Instructions: TOTAL DOSE 3 MG--TAKES WITH 2 MG CAP. oxycodone 5 mg tablet 5 mg PO Q6H PRN (Reason: pain) Qty: 14 0RF prazosin 1 mg capsule 1 mg PO HS Rx Instructions: TOTAL DOSE 3 MG--TAKES WITH 2 MG CAP. dextroamphetamine-amphetamine 20 mg tablet 20 mg PO .DAILY @ 1400 ascorbic acid (vitamin C) [Vitamin C] 250 mg Tablet,Chewable 250 mg PO DAILY pregabalin 50 mg capsule 50 mg PO BID baclofen 10 mg tablet 10 mg PO TID PRN (Reason: MUSCLE SPASMS) hydrocodone-acetaminophen 5-325 mg tablet 1 - 2 tab PO Q6H PRN (Reason: pain) Qty: 20 0RF Rx Instructions: Initial Treatment ondansetron 4 mg tablet,disintegrating 4 mg PO Q6H PRN (Reason: nausea and vomiting) Qty: 20 0RF Referrals Referrals: Concetta Cameron MD [Primary Care Provider] -
[2023-08-31 03:49] LABS: Appearance Urine Cloudy (Clear); Color Urine Orange; Specific Gravity Urine > 1.030 (1.000-1.030)
[2023-08-31 03:51] LABS: Bacteria Urine 3+ (Negative); Hyaline Casts Urine 0-5 /lpf (0-5); RBC Urine 0-4 /hpf (0-4); WBC Urine >30 /hpf (0-5)
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
[2023-08-31] MEDS ORDERED: LORazepam 0.5 MG TAB PO PRN (04:06)
[2023-08-31] MEDS: oxyCODONE HCL IR 5 MG TAB (IMMEDIATE RELEASE) PO PRN ×2 (04:12→21:37)
--- NOTE | 2023-08-31 04:25 | CT Scan Report ---
Exam(s): CT ABDOMEN + PELVIS With Contrast IV Amt: 90 ML OPTIRAY 320 EXAM: CT Abdomen and Pelvis With Intravenous Contrast CLINICAL HISTORY: RUQ abd pain- has had prior CT dye. TECHNIQUE: Axial computed tomography images of the abdomen and pelvis with intravenous contrast. CTDI is 25.21 mGy and DLP is 1331.02 mGy-cm. Automated exposure control was utilized for the study. A dose lowering technique was utilized adhering to the principles of ALARA. CONTRAST: Patient received 90 ML OPTIRAY 320 of IV contrast COMPARISON: No relevant prior studies available. FINDINGS: Limitations: There is respiratory artifact, which degrades image quality on multiple image slices. Lung bases: Unremarkable. No mass. No consolidation. Pleural space: Trace bilateral pleural effusions, subcentimeter in size. No loculation. ABDOMEN: Liver: Unremarkable. No mass. Gallbladder and bile ducts: Unremarkable. No calcified stones. No ductal dilation. Pancreas: Unremarkable. No mass. No ductal dilation. Spleen: Unremarkable. No splenomegaly. Adrenals: Unremarkable. No mass. Kidneys and ureters: Abnormal heterogeneous enhancement of the right kidney. No hydronephrosis with asymmetric ureterectasis and slight hyperenhancement of the proximal to mid right ureter. No obstructive nephrolithiasis or ureteral stones. The left kidney demonstrates normal enhancement. No perinephric abnormality noted bilaterally. Stomach and bowel: No bowel obstruction. No definite asymmetric bowel mucosal abnormality. PELVIS: Appendix: A normal caliber appendix is noted extending medially from the cecum. Bladder: Unremarkable. No mass. Reproductive: Unremarkable as visualized. ABDOMEN and PELVIS: Intraperitoneal space: Unremarkable. No free air. No significant fluid collection. Bones/joints: No acute fracture. No dislocation. Soft tissues: Unremarkable. Vasculature: Unremarkable. No abdominal aortic aneurysm. Lymph nodes: Unremarkable. No enlarged lymph nodes. IMPRESSION: 1. Abnormal heterogeneous enhancement of the right kidney. No hydronephrosis with asymmetric ureterectasis and slight hyperenhancement of the proximal to mid right ureter. No obstructive nephrolithiasis or ureteral stones. Findings are consistent with right-sided pyelonephritis. No perinephric abscess. 2. No bowel obstruction. No definite asymmetric bowel mucosal abnormality. No free intraperitoneal fluid or pneumoperitoneum. Incidental normal caliber appendix. Electronically signed by: Kenney Newman MD 08/31/23 04:23 AM
--- NOTE | 2023-08-31 04:55 | Ultrasound Report ---
Exam(s): US GALLBLADDER EXAM: US Abdomen Limited, Gallbladder CLINICAL HISTORY: RUQ pain, Elevated LFTs. TECHNIQUE: Real-time ultrasound of the right upper quadrant with image documentation. COMPARISON: Right upper quadrant ultrasound 08/07/2023 FINDINGS: Liver: The liver is hyperechoic measuring 16.3 cm. Gallbladder: No cholelithiasis. Minimal echogenic sludge. The gallbladder wall measures 2.6 mm. No pericholecystic fluid. Reported minimal tenderness suggesting potential positive sonographic Vitale sign. Common bile duct: The common bile duct measures 4.3 mm. No stones. No dilation. Pancreas: The pancreas is predominantly obscured by bowel gas pattern. Right kidney: Right kidney measures 12.1 x 5.5 x 4.6 cm. Free fluid: No free fluid. IMPRESSION: No cholelithiasis. Questionable minimal echogenic sludge. No gallbladder wall thickening or pericholecystic fluid. Reported minimal tenderness suggesting potential positive sonographic Vitale sign. No biliary dilatation. Electronically signed by: Kenney Newman MD 08/31/23 04:54 AM
[2023-08-31] MEDS ORDERED: NSS + 20MEQ KCL 20 MEQ/1,000 ML BAG IV SCH (05:24)
--- NOTE | 2023-08-31 06:19 | Surgery Consultation ---
Date of Consultation August 31, 2023 Assessment & Plan (1) Right upper quadrant abdominal pain: The patient has been admitted on the hospitalist service. From a surgical perspective we recommend proceeding as follows: The patient does have a slightly elevated bilirubin but does not have any other elevation of LFTs and does not have definite evidence of cholecystitis on gallbladder ultrasound. Consideration can be given to performing a HIDA scan which I have ordered. The patient does have some evidence of pyelonephritis radiographically and abnormal urinalysis although she is asymptomatic in this regard. She is currently being treated with antibiotics in form of Cipro and Flagyl. Would recommend keeping the patient n.p.o. for the present time Would recommend IV fluid for hydration Additional recommendations will be based on results of HIDA scan once completed. Supervising Physician Co-Signing Physician Notes Patient seen and examined, labs and imaging reviewed, agree with above. 32-year-old female admitted with 1 month of right-sided abdominal pain with nausea. This is worsened over the past few days. She has not been able to keep much down. No association with specific foods. She has been having fevers at home. On exam she is currently afebrile, mildly tachycardic, normotensive. She has tenderness on the right upper quadrant and right flank. WBC 10.9, UA shows pyuria and evidence of infection. Personally viewed and interpreted the CT scan and agree with the assessment of suspected pyelonephritis. Her gallbladder is not overly impressive on CT. Ultrasound showed possible biliary sludge, no evidence of cholecystitis. Her symptoms are likely related to pyelonephritis, less likely to her gallbladder. He should continue to treat with antibiotics. HIDA scan has been ordered and we will await the results of this. History of Present Illness Reason for Consultation: Abnormal gallbladder ultrasound Attending Physician: Rosy Bhatia MD History of Present Illness This is a 32-year-old female who presented to the emergency department secondary to 2 weeks of nausea and vomiting. She says that she has been unable to keep anything down. She complains of some right upper quadrant pain. She notes fevers as high as 102 with associated chills. She notes that the symptoms were sudden onset 2 weeks ago. The patient does not really report any postprandial pain but she does report that since her symptoms began she has not been able to have much in the way of oral intake. The patient denies any back or flank pain. She denies any dysuria or hematuria. She says that she has had prior surgeries in the form of a . Since arrival to the hospital the patient has had labs and imaging which independent reviewed. A CT scan of the abdomen pelvis showed abnormal enhancement of the right kidney without hydronephrosis. There were no obstructing kidney stones noted. These findings were concerning for possible right-sided pyelonephritis. There is no perinephric abscess noted. There is no evidence of bowel obstruction. The patient had a gallbladder ultrasound that showed no evidence of cholelithiasis. There is some minimal echogenic sludge and no gallbladder wall thickening or pericholecystic fluid was noted. Labs include a CBC her white blood cell count was elevated 12.0. Hemoglobin, hematocrit, and platelet count were normal. Chemistry profile showed sodium was 135 with a normal potassium. BUN and creatinine were both within the normal range. Patient did have an elevated bilirubin at 2.3 but the remainder of her liver enzymes were unremarkable. Her lipase was nonelevated. test was negative. Urinalysis was concerning for infection as she had pyuria with 3+ bacteria. Patient's past records were reviewed and she did have a gallbladder ultrasound on 08/07/2023 that showed no evidence of gallstones or biliary ductal dilatation. On this study there is no gallbladder wall thickening or evidence of acute cholecystitis. At the time of my interview the patient was resting in bed. She was in no distress. Allergies Allergy/AdvReac Type Severity Reaction Status Date / Time bee venom protein (honey bee) Allergy Severe Anaphylaxis Verified 10/21/22 19:06 hornet venom Allergy Severe Anaphylaxis Verified 10/21/22 19:06 shellfish derived Allergy Severe Anaphylaxis Verified 10/21/22 19:06 cephalexin Allergy Intermediate hives Verified 10/21/22 19:06 mushroom Allergy Intermediate hives Verified 10/21/22 19:06 Penicillins Allergy Intermediate hives Verified 10/21/22 19:06 sumatriptan [From Imitrex] Allergy Intermediate Hives Verified 10/21/22 19:06 Home Medications Medication Instructions Recorded Confirmed Type dextroamphetamine-amphetamine ER 40 mg PO QAM 10/11/19 08/31/23 History 20 mg 24hr capsule,extend release albuterol sulfate 90 mcg/actuation 2 puffs inhalation Q4H PRN 10/14/19 08/31/23 Rx aerosol inhaler (Ventolin HFA) shortness of breath or wheezing #8 grams epinephrine 0.3 mg/0.3 mL 0.3 mg IM DIRECTED PRN Allergic 05/20/21 08/31/23 History injection, auto-injector (EpiPen) Reaction lorazepam 0.5 mg tablet 0.5 mg PO BID PRN Anxiety 05/20/21 08/31/23 History prazosin 2 mg capsule 2 mg PO HS 05/20/21 08/31/23 History trazodone 100 mg tablet 150 mg PO HS 05/20/21 08/31/23 History baclofen 10 mg tablet 10 mg PO TID PRN MUSCLE SPASMS 10/21/22 08/31/23 History dextroamphetamine-amphetamine 20 20 mg PO .DAILY @ 1400 10/21/22 08/31/23 History mg tablet ondansetron 4 mg disintegrating 4 mg PO Q6H PRN nausea and 10/21/22 Rx tablet vomiting #20 tabs prazosin 1 mg capsule 1 mg PO HS 10/21/22 08/31/23 History pregabalin 50 mg capsule 50 mg PO BID 10/21/22 08/31/23 History Patient History Medical History (Updated 08/31/23 @ 09:45 by Aron Shane MD) ADD (attention deficit disorder) History of petit-mal seizures History of seizures Patient has a history of petit mal seizures, follows Neuro in [place]. Currently on no medications. Per patient's significant other, patient's last seizure activity was in 2018. Severe pre-eclampsia affecting first 2008-Induced at 34 weeks with twin due to preeclampsia Twin 2008 Surgical History History of History of cataract surgery Family History Grandmother (Maternal) Diabetes Cervical cancer Grandfather (Paternal) Stroke Mother Cancer Ovarian and breast cancer Aunt Uterine cancer Breast cancer Social History Smoking Status: Former smoker Tobacco Type: Cigarettes Second Hand Exposure: No; Do You Dip or Chew Tobacco: No; Hx Alcohol Use: Yes Alcohol type: beer and wine Hx Substance Use: No Preferred Language: Turkmen Communication Ability: Effective Drawer In Hand Required: No Beliefs That Will Affect Care: None marital status: Single Current Living Situation: Significant Other Feels Safe at Home: Yes Safety Concerns: Feels Safe At This Time Assistive Devices: Glasses Assistive Devices Comment: glasses not with patient Review of Systems Constitutional: + fever and + chills Ear, Nose, Mouth, Throat: no ear pain Respiratory: no cough and no dyspnea Cardiovascular: no chest pain Gastrointestinal: as per Subjective / HPI Genitourinary: no dysuria Musculoskeletal: + back pain Integumentary: no rash Neurologic: no localized weakness Physical Exam Constitutional: WD/WN, vitals as above Eyes: + anicteric sclerae ENMT: Ears: + hearing impairment; no external ear abnormality No sublingual jaundice Neck: trachea midline Respiratory: normal respiratory effort; no respiratory distress and no labored breathing Cardiovascular: Rate/Rhythm: regular rate and regular rhythm Gastrointestinal (Abdomen): Abdomen is soft and nonrigid. It is nondistended. The patient did not have rebound tenderness or guarding but did have pain with palpation in the right upper quadrant Musculoskeletal: No calf tenderness Skin: no rashes Neurologic: moves all extremities Psychiatric: A+Ox3, euthymic affect Genitourinary: No CVA tenderness noted with percussion bilaterally Results & Data Vital Signs (Past 12 Hours) Vital Signs Temp Pulse Resp BP BP Pulse Ox O2 Del Method 08/31/23 05:15 Room Air 08/31/23 05:15 36.8 C 16 124/78 98 Room Air 08/31/23 04:30 87 15 96/64 L 97 08/31/23 04:00 81 20 113/72 97 08/31/23 03:30 85 13 110/76 97 08/31/23 02:31 96 H 17 117/72 96 08/31/23 02:00 82 20 110/65 97 08/31/23 01:30 88 19 110/68 98 08/31/23 01:00 93 H 18 109/74 97 08/31/23 00:55 90 08/30/23 19:07 99 H 20 95/55 L 100 Room Air Diagnostic Findings Exam(s): CT ABDOMEN + PELVIS With Contrast IV Amt: 90 ML OPTIRAY 320 EXAM: CT Abdomen and Pelvis With Intravenous Contrast CLINICAL HISTORY: RUQ abd pain- has had prior CT dye. TECHNIQUE: Axial computed tomography images of the abdomen and pelvis with intravenous contrast. CTDI is 25.21 mGy and DLP is 1331.02 mGy-cm. Automated exposure control was utilized for the study. A dose lowering technique was utilized adhering to the principles of ALARA. CONTRAST: Patient received 90 ML OPTIRAY 320 of IV contrast COMPARISON: No relevant prior studies available. FINDINGS: Limitations: There is respiratory artifact, which degrades image quality on multiple image slices. Lung bases: Unremarkable. No mass. No consolidation. Pleural space: Trace bilateral pleural effusions, subcentimeter in size. No loculation. ABDOMEN: Liver: Unremarkable. No mass. Gallbladder and bile ducts: Unremarkable. No calcified stones. No ductal dilation. Pancreas: Unremarkable. No mass. No ductal dilation. Spleen: Unremarkable. No splenomegaly. Adrenals: Unremarkable. No mass. Kidneys and ureters: Abnormal heterogeneous enhancement of the right kidney. No hydronephrosis with asymmetric ureterectasis and slight hyperenhancement of the proximal to mid right ureter. No obstructive nephrolithiasis or ureteral stones. The left kidney demonstrates normal enhancement. No perinephric abnormality noted bilaterally. Stomach and bowel: No bowel obstruction. No definite asymmetric bowel mucosal abnormality. PELVIS: Appendix: A normal caliber appendix is noted extending medially from the cecum. Bladder: Unremarkable. No mass. Reproductive: Unremarkable as visualized. ABDOMEN and PELVIS: Intraperitoneal space: Unremarkable. No free air. No significant fluid collection. Bones/joints: No acute fracture. No dislocation. Soft tissues: Unremarkable. Vasculature: Unremarkable. No abdominal aortic aneurysm. Lymph nodes: Unremarkable. No enlarged lymph nodes. IMPRESSION: 1. Abnormal heterogeneous enhancement of the right kidney. No hydronephrosis with asymmetric ureterectasis and slight hyperenhancement of the proximal to mid right ureter. No obstructive nephrolithiasis or ureteral stones. Findings are consistent with right-sided pyelonephritis. No perinephric abscess. 2. No bowel obstruction. No definite asymmetric bowel mucosal abnormality. No free intraperitoneal fluid or pneumoperitoneum. Incidental normal caliber appendix. PG Care Time/CCT Total # of Minutes Spent Total Time Spent with Patient: Total time spent is greater than 50% in coordination of care (as documented) at patient's floor/unit and/or counseling patient: Coding Level of Care Code 99019 IN/OBS CONSULT LVL 5,80M Diagnoses Right upper quadrant abdominal pain R10.11
--- NOTE | 2023-08-31 07:44 | XRay Report ---
XR chest 1V not portable CLINICAL HISTORY: illness COMPARISON STUDY: Chest radiograph October 12, 2019. FINDINGS: Lung volumes are normal. Lungs are clear. There is no pneumothorax or pleural effusion. Car diac size is normal. Mediastinal contours are normal. There is no evidence for pulmonary edema. IMPRESSION: No acute cardiopulmonary findings. ACT 112: Negative or not required by law. Electronically signed by: Vladimir Prince M.D. 08/31/2023 7:42 AM
[2023-08-31 08:03] LABS: Basophils # (auto) 0.02 K/uL (0.00-0.20); Basophils % (auto) 0.2 %; Eosinophils # (auto) 0.01 K/uL (0.00-0.50); Eosinophils % (auto) 0.1 %; Estimated Average Glucose 94 mg/dl; Hematocrit (blood only) 33.7 % (37.0-47.0); Hemoglobin A1C 4.9 % (4.5-5.6); Immature Granulocytes # (auto) 0.03 K/uL (0.01-0.20); Immature Granulocytes % (auto) 0.3 %; Lymphocytes # (auto) 0.59 K/uL (1.20-3.40); Lymphocytes % (auto) 5.4 %; Mean Corpuscular Hgb Conc 35.6 g/dL (32.0-36.0); Mean Corpuscular Volume 89.9 fL (80.0-100.0); Mean Platelet Volume 10.2 fL (9.4-12.4); Monocytes # (auto) 1.35 K/uL (0.11-0.59); Monocytes % (auto) 12.4 %; Neutrophils # (auto) 8.93 K/uL (1.40-6.50); Neutrophils % (auto) 81.6 %; Platelet Count 196 K/uL (130-400); RDW Coefficient of Variation 11.7 % (11.5-14.5); Red Blood Count 3.75 M/uL (4.20-5.40); White Blood Count 10.93 K/ul (4.8-10.8)
[2023-08-31 08:09] LABS: Albumin Globulin Ratio 1.3 (0.9-2); Albumin Level 3.7 gm/dl (3.4-5.0); BUN Creatinine Ratio 16.9 (10-20); Bilirubin,Total 3.1 mg/dl (0.2-1.0); Calcium 8.7 mg/dl (8.6-10.3); Creatinine Clr Calc Pharmacy 98.2 ml/min; Est GFR (African American) 99.4 ml/min; Est GFR (Non-African American) 85.8 ml/min; Globulin 2.8 gm/dl (2.5-4.0); Potassium 3.6 mmol/L (3.5-5.1); Total Protein 6.5 gm/dl (6.0-8.3)
[2023-08-31] MEDS: KETOROLAC TROMETHAMINE 15 MG/ML VIAL IV PRN ×2 (08:59→16:00)
[2023-08-31] MEDS: PROMETHAZINE HCL 6.25 MG in SODIUM CHLORIDE 0.9% 50 ML IV PRN (09:05)
[2023-08-31] MEDS: SODIUM CHLORIDE 0.9% 1,000 ML IV SCH (11:22)
[2023-08-31] MEDS: metroNIDAZOLE 500 MG/100 ML BAG IV SCH ×2 (11:23→21:29)
--- NOTE | 2023-08-31 15:28 | Nuclear Medicine Report ---
NUCLEAR MEDICINE HEPATOBILIARY SCAN CLINICAL HISTORY: Abnormal gallbladder on ultrasound. COMPARISON: CT of the abdomen and pelvis and right upper quadrant ultrasound August 31, 2023. TECHNIQUE: 5.1 mCi of technetium 99m Choletec IV was injected at 2:05 PM on August 31, 2023. Immed iately following injection, imaging of the abdomen was carried out for 60 minutes in the anterior pro jection. FINDINGS: Hepatic uptake of radiotracer is prompt and homogeneous. Note is made of increased radiotr acer uptake along the periphery of the posterior aspect of the right hepatic lobe. This suggests hype remia, likely related to acute pyelonephritis when correlating with CT performed earlier today. Activ ity within the gallbladder is noted at 45 minutes. Small bowel and common bile duct activity is noted at 15 minutes. IMPRESSION: 1. No scintigraphic evidence for acute cholecystitis. Activity identified within the gallbladder at 4 5 minutes. 2. Increased radiotracer uptake along the periphery of the right hepatic lobe suggestive of hyperemia , likely related to acute right pyelonephritis with correlating with CT performed earlier today. ACT 112: Negative or not required by law. Electronically signed by: Vladimir Prince M.D. 08/31/2023 3:26 PM
--- NOTE | 2023-08-31 15:35 | Communication Note ---
Date of Service: August 31, 2023 Results of HIDA scan negative for acute cholecystitis. General surgery will sign off. Please call with questions or concerns.
[2023-08-31] MEDS: PREGABALIN 50 MG CAP PO SCH ×2 (17:31→21:37)
[2023-08-31] MEDS: CIPROFLOXACIN / D5W 400 MG/200 ML BAG IV SCH (17:32)
[2023-08-31] MEDS ORDERED: PRAZOSIN HCL 1 MG CAP PO SCH (21:00)
[2023-08-31] MEDS: PRAZOSIN HCL 1 MG CAP PO SCH (21:31)
[2023-08-31] MEDS: traZODone HCL 50 MG TAB PO SCH (21:32)
[2023-09-01] MEDS: SODIUM CHLORIDE 0.9% 1,000 ML IV SCH ×2 (01:34→14:13)
[2023-09-01] MEDS: oxyCODONE HCL IR 5 MG TAB (IMMEDIATE RELEASE) PO PRN ×4 (01:37→17:54)
[2023-09-01] MEDS: metroNIDAZOLE 500 MG/100 ML BAG IV SCH ×3 (03:37→19:40)
--- NOTE | 2023-09-01 04:08 | Communication Note ---
Date of Service: August 31, 2023 Pt seen in the AM before her HIDA scan. Nausea and pain was controlled at that time. Abdomen was tender on exam in right quadrants. Later spoke to pt by phone and communicated results of the HIDA scan, that there was less concern for cholecystitis. Pt requesting to eat clear liquid diet ordered with goal to advance as tolerated. Will continue to treat pyelo/complicated UTI with abx.
[2023-09-01] MEDS: CIPROFLOXACIN / D5W 400 MG/200 ML BAG IV SCH ×2 (04:44→16:08)
[2023-09-01] MEDS: KETOROLAC TROMETHAMINE 15 MG/ML VIAL IV PRN (04:54)
[2023-09-01 07:37] LABS: Albumin Globulin Ratio 1.3 (0.9-2); Albumin Level 3.1 gm/dl (3.4-5.0); BUN Creatinine Ratio 12.2 (10-20); Bilirubin,Total 2.8 mg/dl (0.2-1.0); Creatinine Clr Calc Pharmacy 97.1 ml/min; Est GFR (African American) 98.1 ml/min; Est GFR (Non-African American) 84.6 ml/min; Globulin 2.4 gm/dl (2.5-4.0); Magnesium 1.9 mg/dl (1.7-2.4); Phosphorus 2.4 mg/dl (2.5-4.9); Potassium 3.4 mmol/L (3.5-5.1); Total Protein 5.5 gm/dl (6.0-8.3)
[2023-09-01 07:39] LABS: Basophils # (auto) 0.03 K/uL (0.00-0.20); Basophils % (auto) 0.3 %; Eosinophils # (auto) 0.07 K/uL (0.00-0.50); Eosinophils % (auto) 0.7 %; Hematocrit (blood only) 28.7 % (37.0-47.0); Hemoglobin 10.1 g/dl (12.0-16.0); Immature Granulocytes # (auto) 0.05 K/uL (0.01-0.20); Immature Granulocytes % (auto) 0.5 %; Lymphocytes # (auto) 1.14 K/uL (1.20-3.40); Lymphocytes % (auto) 10.9 %; Mean Corpuscular Hemoglobin 31.8 pg (25.0-34.0); Mean Corpuscular Hgb Conc 35.2 g/dL (32.0-36.0); Mean Corpuscular Volume 90.3 fL (80.0-100.0); Mean Platelet Volume 10.3 fL (9.4-12.4); Monocytes # (auto) 1.42 K/uL (0.11-0.59); Monocytes % (auto) 13.6 %; Neutrophils # (auto) 7.74 K/uL (1.40-6.50); Platelet Count 191 K/uL (130-400); RDW Coefficient of Variation 11.6 % (11.5-14.5); RDW Standard Deviation 38.5 fL (36.4-46.3); Red Blood Count 3.18 M/uL (4.20-5.40); White Blood Count 10.45 K/ul (4.8-10.8)
[2023-09-01] MEDS: PREGABALIN 50 MG CAP PO SCH ×2 (08:13→19:40)
[2023-09-01] MEDS ORDERED: POTASSIUM CHLORIDE PWD 20 MEQ PACK PO ONE (09:45)
[2023-09-01] MEDS ORDERED: POT PHOSPHATE MONOBASIC W/ SOD TAB PO ONE (09:45)
--- NOTE | 2023-09-01 14:59 | Hospitalist Progress Note ---
Date of Service September 01, 2023 Assessment & Plan (1) Abdominal pain: Plan: This is a 32 yr old F who presented to ED 2/2 Right-sided abdominal pain. There was initial concern for cholecystitis 2/2 postprandial symptoms. ---CT a/p 1. Abnormal heterogeneous enhancement of the right kidney. No hydronephrosis with asymmetric ureterectasis and slight hyperenhancement of the proximal to mid right ureter. No obstructive nephrolithiasis or ureteral ston es. Findings are consistent with right-sided pyelonephritis. No perinephric abscess. 2. No bowel obstruction. No definite asymmetric bowel mucosal abnormality. No free intraperitoneal fluid or pneumoperitoneum.Incidental normal caliber appendix. HIDA Scan was complete which was negative Complicated UTI with pyelonephritis pt does not meet sepsis criteria admitted to medical urine culture: > 100k gram negative, await final results continue IV Cipro for now, pt has allergy to cephalosporin with hives will advance diet as tolerated Hyperbilirubinemia T bili 2.3 --> 3.1 --> 2.8 ast/alt/alp normal GB US, CT abd/pelvis/ HIDA negative in sense of bilary pathology obtain direct bilirubin, hemolysis w/u Anemia repeat cbc in a.m. obtain anemia panel, hemolysis w/u in setting of infection no s/sx of bleeding Hypokalemia Hypophosphatemia replete repet labs in a.m. Asthma chronic, stable continue prn inhaler ADD, OCD, anxiety/mood disorder Chronic, stable DVT ppx: SCDs FULL CODE PCP: Germain Acuna PT was seen and examined in collaboration with Dr. Dugan, please see addendum A total of 55 was spent coordinating, documenting, and providing care for this patient excluding time spent in the performance of separately billed services. This included personally viewing all current laboratories and imaging studies, medication reconciliation, outpatient chart review, and discussion with specialists. Admission and Anticipated Discharge Date Admission Date: August 31, 2023 Supervising Physician Co-Signing Physician Notes I have seen and discussed the case with the collaborating KEY. I agree with the above H&P. I have reviewed and confirmed the patients medical history, the findings on physical examination, and the patients diagnosis and treatment plan with Rick MACKEY and agree with the information documented. In short, Ms. Absaraka is a 32 year old woman who was thought to have ?cholecysitis given liver enzymes elevation, however, appears to be 2/2 pyelonephritis. HIDA negative. Plan to continue cipro for coverage while infectious work up results. Rest of pl an as above. Subjective Pt seen and examined in 351-1. F/U Abd pain. C/w RuQ pain, 5/10. Tolerating liquid diet. Requesting more solid food. Denies n/v/d, f/c/s, chest pain or sob. Review of Systems Review of Systems: All systems reviewed & are unremarkable except as noted in HPI & below Physical Exam Physical Exam: Gen: WD/WN, NAD, A&O x3 HEENT: Normocephalic, atraumatic, conjunctivae moist, sclerae anicteric, mucous membranes moist. Lung: Clear to Auscultation bilaterally, no wheezes/rales/rhonchi Heart: Regular rate, regular rhythm, no murmurs, rubs, or gallops Abdomen: Soft, NT, ND +BS x 4 Extremities: No edema Skin: Warm, no rash, negative turgor. Results & Data Results & Data Vital Signs (Past 12 Hours) Vital Signs Temp Pulse Resp BP Pulse Ox O2 Del Method 09/01/23 08:12 37.2 C 88 16 103/54 L 97 Room Air Laboratory Results Short CBC 09/01/23 Range/Units 06:29 WBC 10.45 (4.8-10.8) K/ul Hgb 10.1 L (12.0-16.0) g/dl Hct 28.7 L (37.0-47.0) % Plt Count 191 (130-400) K/uL BMP 09/01/23 06:29 Sodium 136 Potassium 3.4 L Chloride 107 Carbon Dioxide 24 BUN 11 Creatinine 0.90 Glucose 120 H Calcium 8.0 L Liver Function 09/01/23 Range/Units 06:29 Total Bilirubin 2.8 H (0.2-1.0) mg/dl AST 15 (13-39) U/L ALT 17 (7-52) U/L Alkaline Phosphatase 60 (34-104) U/L Albumin 3.1 L (3.4-5.0) gm/dl Diagnostic Findings HIDA 1. No scintigraphic evidence for acute cholecystitis. Activity identified within the gallbladder at 45 minutes. 2. Increased radiotracer uptake along the periphery of the right hepatic lobe suggestive of hyperemia, likely related to acute right pyelonephritis with correlating with CT performed earlier today. Medications Administered Current Inpatient Medications Acetaminophen (Acetaminophen 325 Mg Tab) 650 mg PO QID PRN PRN Reason: pain/fever Stop: 09/30/23 03:04 Promethazine HCl 6.25 mg/ (Sodium Chloride) 50.25 mls @ 201 mls/hr IV Q6H PRN PRN Reason: Nausea And Vomiting Stop: 09/30/23 03:04 Last Infusion: 08/31/23 09:34 Dose: Infused Ciprofloxacin (Cipro / D5w) 400 mg in 200 mls @ 100 mls/hr IV Q12H SWETHA; Protocol Stop: 09/10/23 15:59 Last Infusion: 09/01/23 06:49 Dose: Infused Metronidazole (Flagyl) 500 mg in 100 mls @ 100 mls/hr IV Q8H SWETHA; Protocol Stop: 09/04/23 11:59 Last Infusion: 09/01/23 13:17 Dose: Infused Sodium Chloride (Nss) 1,000 mls @ 80 mls/hr IV .[id number] SWETHA Stop: 09/30/23 10:59 Last Admin: 09/01/23 14:13 Dose: 80 mls/hr Ketorolac Tromethamine (Ketorolac Tromethamine 15 Mg/Ml Vial) 15 mg IV Q6H PRN PRN Reason: Pain Stop: 09/05/23 04:46 Last Admin: 09/01/23 04:54 Dose: 15 mg Lorazepam (Lorazepam 0.5 Mg Tab) 0.5 mg PO TID PRN PRN Reason: Anxiety Stop: 09/30/23 04:05 Oxycodone HCl (Oxycodone Hcl Ir 5 Mg Tab (Immediate Release)) 5 mg PO Q4H PRN PRN Reason: Pain Stop: 09/14/23 03:04 Last Admin: 09/01/23 13:09 Dose: 5 mg Prazosin HCl (Prazosin Hcl 1 Mg Cap) 3 mg PO HS SWETHA Stop: 09/30/23 20:59 Last Admin: 08/31/23 21:31 Dose: 3 mg Pregabalin (Pregabalin 50 Mg Cap) 50 mg PO BID SWETHA Stop: 09/30/23 08:59 Last Admin: 09/01/23 08:13 Dose: 50 mg Trazodone HCl (Trazodone Hcl 50 Mg Tab) 150 mg PO HS [facility] Stop: 09/30/23 20:59 Last Admin: 08/31/23 21:32 Dose: 150 mg
[2023-09-01 15:41] LABS: Bilirubin Direct 1.2 mg/dl (0-0.2)
[2023-09-01] MEDS: PRAZOSIN HCL 1 MG CAP PO SCH (19:39)
[2023-09-01] MEDS: traZODone HCL 50 MG TAB PO SCH (19:40)
--- NOTE | 2023-09-01 22:37 | Electrocardiogram Report ---
Test Reason : Blood Pressure : / mmHG Vent. Rate : 095 BPM Atrial Rate : 095 BPM P-R Int : 116 ms QRS Dur : 090 ms QT Int : 358 ms P-R-T Axes : 027 019 -15 degrees QTc Int : 449 ms Normal sinus rhythm T wave abnormality, consider anterior ischemia Abnormal ECG When compared with ECG of 07-AUG-2023 17:01, No significant change was found Confirmed by Suresh Warren ([id number]) on 09/01/2023 10:37:41 PM Referred By: REFERRED SELF Confirmed By:Suresh Warren
[2023-09-02] MEDS: KETOROLAC TROMETHAMINE 15 MG/ML VIAL IV PRN ×2 (00:01→18:33)
[2023-09-02] MEDS: SODIUM CHLORIDE 0.9% 1,000 ML IV SCH ×2 (00:05→13:01)
[2023-09-02] MEDS: metroNIDAZOLE 500 MG/100 ML BAG IV SCH ×3 (03:04→19:31)
[2023-09-02] MEDS: oxyCODONE HCL IR 5 MG TAB (IMMEDIATE RELEASE) PO PRN ×3 (03:06→13:04)
[2023-09-02] MEDS: CIPROFLOXACIN / D5W 400 MG/200 ML BAG IV SCH ×2 (04:18→16:22)
[2023-09-02 07:39] LABS: Basophils # (auto) 0.03 K/uL (0.00-0.20); Basophils % (auto) 0.5 %; Eosinophils # (auto) 0.09 K/uL (0.00-0.50); Eosinophils % (auto) 1.5 %; Hematocrit (blood only) 27.2 % (37.0-47.0); Hemoglobin 9.6 g/dl (12.0-16.0); Immature Granulocytes # (auto) 0.04 K/uL (0.01-0.20); Immature Granulocytes % (auto) 0.7 %; Lymphocytes # (auto) 1.12 K/uL (1.20-3.40); Lymphocytes % (auto) 19.1 %; Mean Corpuscular Hemoglobin 31.3 pg (25.0-34.0); Mean Corpuscular Hgb Conc 35.3 g/dL (32.0-36.0); Mean Corpuscular Volume 88.6 fL (80.0-100.0); Mean Platelet Volume 10.3 fL (9.4-12.4); Monocytes # (auto) 0.75 K/uL (0.11-0.59); Monocytes % (auto) 12.8 %; Neutrophils # (auto) 3.82 K/uL (1.40-6.50); Neutrophils % (auto) 65.4 %; Platelet Count 198 K/uL (130-400); RDW Coefficient of Variation 11.8 % (11.5-14.5); RDW Standard Deviation 38.1 fL (36.4-46.3); Red Blood Count 3.07 M/uL (4.20-5.40); Reticulocyte % 1.1 % (0.5-2.0); Reticulocytes # 0.03 10^6/uL (0.02-0.10); White Blood Count 5.85 K/ul (4.8-10.8)
[2023-09-02] MEDS: PREGABALIN 50 MG CAP PO SCH ×2 (08:00→19:31)
[2023-09-02 08:17] LABS: Albumin Globulin Ratio 1.3 (0.9-2); BUN Creatinine Ratio 8.3 (10-20); Bilirubin Direct 0.6 mg/dl (0-0.2); Bilirubin,Total 1.4 mg/dl (0.2-1.0); Creatinine Clr Calc Pharmacy 104.1 ml/min; Est GFR (African American) 106.6 ml/min; Globulin 2.3 gm/dl (2.5-4.0); Phosphorus 3.1 mg/dl (2.5-4.9); Potassium 3.5 mmol/L (3.5-5.1); Total Protein 5.3 gm/dl (6.0-8.3)
[2023-09-02 08:37] LABS: Ferritin 289.4 ng/ml (8-388)
[2023-09-02] MEDS: BACLOFEN 10 MG TAB PO PRN (09:18)
[2023-09-02 11:49] LABS: Folate (Folic Acid),Ser orPlas 15.68 ng/ml (>5.38)
[2023-09-02] MEDS ORDERED: DOCUSATE SODIUM 100 MG CAP PO PRN (15:49)
--- NOTE | 2023-09-02 16:56 | Hospitalist Progress Note ---
Date of Service September 02, 2023 Assessment & Plan (1) Abdominal pain: Plan: This is a 32 yr old F who presented to ED 2/2 Right-sided abdominal pain. There was initial concern for cholecystitis 2/[address] a/p 1. Abnormal heterogeneous enhancement of the right kidney. No hydronephrosis with asymmetric ureterectasis and slight hyperenhancement of the proximal to mid right ureter. No obstructive nephrolithiasis or ureteral stones. Findings are consistent with right-sided pyelonephritis. No perinephric abscess. 2. No bowel obstruction. No definite asymmetric bowel mucosal abnormality. No free intraperitoneal fluid or pneumoperitoneum.Incidental normal caliber appendix. HIDA Scan was complete which was negative Complicated UTI with pyelonephritis pt does not meet sepsis criteria admitted to medical urine culture: final urine culture growing e coli sensitive to Cipro continue IV Cipro for now, pt has allergy to cephalosporin with hives Plan to dc on PO Cipro to complete course Hyperbilirubinemia T bili 2.3 --> 3.1 --> 2.8 --> 1.4 ast/alt/alp normal GB US, CT abd/pelvis/ HIDA negative in sense of bilary pathology direct bilirubin downtrending from 1.2 --> 0.6, LDH WNL Anemia Anemia panel indicates ROCHELLE Recommend starting iron supplementation following completion of abx and resolution of abd pain hemolysis w/u with negative LDH Folate, B12 WBL No s/sx of bleeding Hypokalemia Hypophosphatemia replete repet labs in a.m. Asthma chronic, stable continue prn inhaler ADD, OCD, anxiety/mood disorder Chronic, stable DVT ppx: SCDs FULL CODE PCP: Germain Acuna PT was seen and examined in collaboration with Dr. Dugan, please see addendum Admission and Anticipated Discharge Date Admission Date: August 31, 2023 Supervising Physician Co-Signing Physician Notes I have seen and discussed the case with the collaborating KEY. I agree with the above H&P. I have reviewed and confirmed the patients medical history, the findings on physical examination, and the patients diagnosis and treatment plan with Rick MACKEY and agree with the information documented. In short, Ms. Rodgers is a 32 year old woman who was thought to have ?cholecystitis given liver enzymes elevation, however, appears to be 2/2 pyelonephritis. HIDA negative. Still with mild RUQ pain on PE, but improved. Plan to continue cipro for coverage, with transition to cipro BID for 7 days PO upon discharge, tentatively tomorrow. Subjective Pt seen and examined in 351-1 in follow-up for abdominal pain. Still experiencing some right upper and lower quadrant pain but tolerating diet. Denies any urinary symptoms. No new symptoms overnight. No fever, chills, lightheadedness, chest pain, shortness of breath, nausea, vomiting, abdominal pain, dysuria or constipation. Review of Systems Review of Systems: At least ten systems reviewed and negative except as noted in the HPI. Physical Exam Physical Exam: Gen: WD/WN, NAD, sitting up in bed watching TV, A&Ox3 HEENT: Normocephalic, atraumatic, conjunctivae moist, sclerae anicteric, mucous membranes moist Lung: Clear to Auscultation bilaterally, no wheezes/rales/rhonchi Heart: Regular rate, regular rhythm, no murmurs, rubs, or gallops Abdomen: Soft, TTP R flank, ND +BS x 4 Extremities: no edema Skin: Warm, no rash Results & Data Results & Data Vital Signs (Past 12 Hours) Vital Signs Temp Pulse Resp BP BP Pulse Ox O2 Del Method 09/02/23 16:22 36.7 C 75 16 122/76 96 Room Air 09/02/23 05:31 36.6 C 77 18 109/65 94 Room Air Laboratory Results Short CBC 09/02/23 Range/Units 06:51 WBC 5.85 (4.8-10.8) K/ul Hgb 9.6 L (12.0-16.0) g/dl Hct 27.2 L (37.0-47.0) % Plt Count 198 (130-400) K/uL BMP 09/02/23 06:51 Sodium 137 Potassium 3.5 Chloride 109 H Carbon Dioxide 24 BUN 7 Creatinine 0.84 Glucose 118 H Calcium 8.0 L Liver Function 09/02/23 Range/Units 06:51 Total Bilirubin 1.4 H (0.2-1.0) mg/dl Direct Bilirubin 0.6 H (0-0.2) mg/dl AST 23 (13-39) U/L ALT 19 (7-52) U/L Alkaline Phosphatase 59 (34-104) U/L Albumin 3.0 L (3.4-5.0) gm/dl Diagnostic Findings Chest X-Ray 08/30/23 19:11 XR chest 1V not portable CLINICAL HISTORY: illness COMPARISON STUDY: Chest radiograph October 12, 2019. FINDINGS: Lung volumes are normal. Lungs are clear. There is no pneumothorax or pleural effusion. Cardiac size is normal. Mediastinal contours are normal. There is no evidence for pulmonary edema. IMPRESSION: No acute cardiopulmonary findings. ACT 112: Negative or not required by law. Electronically signed by: Vladimir Prince M.D. 08/31/2023 7:42 AM Abdomen/Pelvis CT 08/31/23 00:28 Exam(s): CT ABDOMEN + PELVIS With Contrast IV Amt: 90 ML OPTIRAY 320 EXAM: CT Abdomen and Pelvis With Intravenous Contrast CLINICAL HISTORY: RUQ abd pain- has had prior CT dye. TECHNIQUE: Axial computed tomography images of the abdomen and pelvis with intravenous contrast. CTDI is 25.21 mGy and DLP is 1331.02 mGy-cm. Automated exposure control was utilized for the study. A dose lowering technique was utilized adhering to the principles of ALARA. CONTRAST: Patient received 90 ML OPTIRAY 320 of IV contrast COMPARISON: No relevant prior studies available. FINDINGS: Limitations: There is respiratory artifact, which degrades image quality on multiple image slices. Lung bases: Unremarkable. No mass. No consolidation. Pleural space: Trace bilateral pleural effusions, subcentimeter in size. No loculation. ABDOMEN: Liver: Unremarkable. No mass. Gallbladder and bile ducts: Unremarkable. No calcified stones. No ductal dilation. Pancreas: Unremarkable. No mass. No ductal dilation. Spleen: Unremarkable. No splenomegaly. Adrenals: Unremarkable. No mass. Kidneys and ureters: Abnormal heterogeneous enhancement of the right kidney. No hydronephrosis with asymmetric ureterectasis and slight hyperenhancement of the proximal to mid right ureter. No obstructive nephrolithiasis or ureteral stones. The left kidney demonstrates normal enhancement. No perinephric abnormality noted bilaterally. Stomach and bowel: No bowel obstruction. No definite asymmetric bowel mucosal abnormality. PELVIS: Appendix: A normal caliber appendix is noted extending medially from the cecum. Bladder: Unremarkable. No mass. Reproductive: Unremarkable as visualized. ABDOMEN and PELVIS: Intraperitoneal space: Unremarkable. No free air. No significant fluid collection. Bones/joints: No acute fracture. No dislocation. Soft tissues: Unremarkable. Vasculature: Unremarkable. No abdominal aortic aneurysm. Lymph nodes: Unremarkable. No enlarged lymph nodes. IMPRESSION: 1. Abnormal heterogeneous enhancement of the right kidney. No hydronephrosis with asymmetric ureterectasis and slight hyperenhancement of the proximal to mid right ureter. No obstructive nephrolithiasis or ureteral stones. Findings are consistent with right-sided pyelonephritis. No perinephric abscess. 2. No bowel obstruction. No definite asymmetric bowel mucosal abnormality. No free intraperitoneal fluid or pneumoperitoneum. Incidental normal caliber appendix. Electronically signed by: Kenney Newman MD 08/31/23 04:23 AM Gallbladder Ultrasound 08/31/23 02:37 Exam(s): US GALLBLADDER EXAM: US Abdomen Limited, Gallbladder CLINICAL HISTORY: RUQ pain, Elevated LFTs. TECHNIQUE: Real-time ultrasound of the right upper quadrant with image documentation. COMPARISON: Right upper quadrant ultrasound 08/07/2023 FINDINGS: Liver: The liver is hyperechoic measuring 16.3 cm. Gallbladder: No cholelithiasis. Minimal echogenic sludge. The gallbladder wall measures 2.6 mm. No pericholecystic fluid. Reported minimal tenderness suggesting potential positive sonographic Vitale sign. Common bile duct: The common bile duct measures 4.3 mm. No stones. No dilation. Pancreas: The pancreas is predominantly obscured by bowel gas pattern. Right kidney: Right kidney measures 12.1 x 5.5 x 4.6 cm. Free fluid: No free fluid. IMPRESSION: No cholelithiasis. Questionable minimal echogenic sludge. No gallbladder wall thickening or pericholecystic fluid. Reported minimal tenderness suggesting potential positive sonographic Vitale sign. No biliary dilatation. Electronically signed by: Kenney Newman MD 08/31/23 04:54 AM Hepatobiliary Scan Nuclear Medicine 08/31/23 06:28 NUCLEAR MEDICINE HEPATOBILIARY SCAN CLINICAL HISTORY: Abnormal gallbladder on ultrasound. COMPARISON: CT of the abdomen and pelvis and right upper quadrant ultrasound August 31, 2023. TECHNIQUE: 5.1 mCi of technetium 99m Choletec IV was injected at 2:05 PM on August 31, 2023. Immediately following injection, imaging of the abdomen was carried out for 60 minutes in the anterior projection. FINDINGS: Hepatic uptake of radiotracer is prompt and homogeneous. Note is made of increased radiotracer uptake along the periphery of the posterior aspect of the right hepatic lobe. This suggests hyperemia, likely related to acute pyelonephritis when correlating with CT performed earlier today. Activity within the gallbladder is noted at 45 minutes. Small bowel and common bile duct activity is noted at 15 minutes. IMPRESSION: 1. No scintigraphic evidence for acute cholecystitis. Activity identified within the gallbladder at 45 minutes. 2. Increased radiotracer uptake along the periphery of the right hepatic lobe suggestive of hyperemia, likely related to acute right pyelonephritis with correlating with CT performed earlier today. ACT 112: Negative or not required by law. Electronically signed by: Vladimir Prince M.D. 08/31/2023 3:26 PM
[2023-09-02] MEDS ORDERED: FERROUS SULFATE 325 MG TAB PO SCH (17:00)
[2023-09-02] MEDS: PROMETHAZINE HCL 6.25 MG in SODIUM CHLORIDE 0.9% 50 ML IV PRN (18:41)
[2023-09-02] MEDS: PRAZOSIN HCL 1 MG CAP PO SCH (19:31)
[2023-09-02] MEDS: traZODone HCL 50 MG TAB PO SCH (19:31)
[2023-09-03] MEDS: SODIUM CHLORIDE 0.9% 1,000 ML IV SCH (00:08)
[2023-09-03] MEDS: oxyCODONE HCL IR 5 MG TAB (IMMEDIATE RELEASE) PO PRN ×2 (00:10→09:32)
[2023-09-03] MEDS: metroNIDAZOLE 500 MG/100 ML BAG IV SCH (03:02)
[2023-09-03] MEDS: CIPROFLOXACIN / D5W 400 MG/200 ML BAG IV SCH (04:07)
[2023-09-03] MEDS: KETOROLAC TROMETHAMINE 15 MG/ML VIAL IV PRN (04:11)
[2023-09-03 06:43] LABS: Basophils # (auto) 0.03 K/uL (0.00-0.20); Basophils % (auto) 0.7 %; Eosinophils # (auto) 0.09 K/uL (0.00-0.50); Eosinophils % (auto) 2.1 %; Hematocrit (blood only) 28.3 % (37.0-47.0); Hemoglobin 9.7 g/dl (12.0-16.0); Immature Granulocytes # (auto) 0.03 K/uL (0.01-0.20); Immature Granulocytes % (auto) 0.7 %; Lymphocytes # (auto) 1.23 K/uL (1.20-3.40); Lymphocytes % (auto) 28.3 %; Mean Corpuscular Hemoglobin 31.1 pg (25.0-34.0); Mean Corpuscular Hgb Conc 34.3 g/dL (32.0-36.0); Mean Corpuscular Volume 90.7 fL (80.0-100.0); Mean Platelet Volume 10.3 fL (9.4-12.4); Monocytes # (auto) 0.52 K/uL (0.11-0.59); Neutrophils # (auto) 2.44 K/uL (1.40-6.50); Neutrophils % (auto) 56.2 %; Platelet Count 218 K/uL (130-400); RDW Coefficient of Variation 11.4 % (11.5-14.5); RDW Standard Deviation 37.8 fL (36.4-46.3); Red Blood Count 3.12 M/uL (4.20-5.40); White Blood Count 4.34 K/ul (4.8-10.8)
[2023-09-03 06:58] LABS: Albumin Globulin Ratio 1.2 (0.9-2); Albumin Level 3.1 gm/dl (3.4-5.0); BUN Creatinine Ratio 9.4 (10-20); Bilirubin,Total 0.8 mg/dl (0.2-1.0); Calcium 8.3 mg/dl (8.6-10.3); Creatinine Clr Calc Pharmacy 102.8 ml/min; Est GFR (African American) 105.1 ml/min; Est GFR (Non-African American) 90.7 ml/min; Globulin 2.5 gm/dl (2.5-4.0); Phosphorus 3.3 mg/dl (2.5-4.9); Potassium 3.6 mmol/L (3.5-5.1); Total Protein 5.6 gm/dl (6.0-8.3)
[2023-09-03] MEDS: PREGABALIN 50 MG CAP PO SCH (07:22)
[2023-09-03] MEDS: BACLOFEN 10 MG TAB PO PRN (07:22)
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
== END 2023-09-03 12:25 | disposition home or self-care (01) | DRG 690 ==
LOC: ED 19:03 → SUATTDRO 08-31 04:05 → 3W 08-31 04:05